=== PATIENT | female | born 1985 | race Caucasian/White ===

== ENCOUNTER 2016-06-03 11:37 | Emergency (ER) | payer OTHER ==
[2016-06-03 12:06] VITALS: BP 152/95
[2016-06-03] MEDS ORDERED: Ketorolac INJ* 60 MG/2 ML VIAL IM ONE (13:07)
--- NOTE | 2016-06-03 13:07 | RAD ---
INDICATION: Right wrist numbness and tingling COMPARISON: None TECHNIQUE: AP, lateral, and oblique views were obtained. FINDINGS: The bony structures, joint spaces, and soft tissues are normal for age. IMPRESSION: NEGATIVE EXAMINATION.
--- NOTE | 2016-06-03 13:08 | RAD ---
HISTORY: Pain, paresthesia COMPARISONS: None VIEWS: 2, Frontal and lateral views of the right elbow FINDINGS: BONE DENSITY: Normal. BONES: There is no displaced fracture. JOINTS: There is no arthropathy. There is no posterior supracondylar fat pad to suggest a joint effusion. ALIGNMENT: There is no dislocation. SOFT TISSUES: Unremarkable. OTHER FINDINGS: None. IMPRESSION: NO ACUTE OSSEOUS INJURY. IF SYMPTOMS PERSIST, RECOMMEND REPEAT IMAGING.
--- NOTE | 2016-06-03 13:09 | RAD ---
Indication: RIGHT upper extremity numbness and paresthesias. Comparison: No relevant prior exams available on the [facility] PACS. Technique: AP, open-mouth odontoid, lateral, and oblique views cervical spine. Report: Straightening relative to normal cervical lordosis without facet subluxation at any level. Negative for fracture. Preserved disc spaces. Unremarkable facet joints. Oblique views are negative for osseous foraminal stenosis. Unremarkable prevertebral soft tissue contours. IMPRESSION: Aside from straightening relative to normal lordosis the examination is normal.
[2016-06-03] MEDS ORDERED: Ketorolac INJ* 30 MG/ML 1 ML VIAL IV PUSH ONE (13:35)
[2016-06-03] MEDS ORDERED: Ketorolac INJ* 60 MG/2 ML VIAL IV PUSH ONE (13:35)
--- NOTE | 2016-06-03 14:21 | UC ---
UC General HPI - HPI Summary HPI Summary: TWO DAYS OF RIGHT SHOULDER PAIN WITH NUMBNESS AND BURNING THAT RADIATES INTO RIGHT WRIST. DURING XRAY PATIENT COMPLAINED OF DIZZINESS, WORSENING RIGHT SHOULDER BURNING, AND DIFFICULTY FOCUSING - History of Current Complaint Chief Complaint: UCUpperExtremity Stated Complaint: HAND NUMB Time Seen by Provider: 06/03/16 12:14 Hx Obtained From: Patient Onset/Duration: Sudden Onset, Lasting Days, Still Present Timing: Constant Onset Severity: Mild Current Severity: Severe Pain Intensity: 0 Pain Location at: RIGHT SHOULDER Pain Radiates to: WRIST HAND Associated Signs & Symptoms: Negative: Fever - Allergy/Home Medications Allergies/Adverse Reactions: Allergies Allergy/AdvReac Type Severity Reaction Status Date / Time Penicillins Allergy Severe Unknown Verified 04/12/14 13:39 Reaction Details Sulfamethoxazole Allergy Severe Hives Verified 04/12/14 13:39 w/Trimethoprim [From Bactrim] PMH/Surg Hx/FS Hx/Imm Hx Previously Healthy: Yes Endocrine History Of: Denies: Diabetes, Thyroid Disease Cardiovascular History Of: Denies: Cardiac Disorders, Hypertension Respiratory History Of: Denies: COPD, Asthma GI/ History Of: Denies: Ulcer - Surgical History Surgical History: Yes Surgery Procedure, Year, and Place: tonsils; appe; cleft palate - Family History Known Family History: Negative: Cardiac Disease, Seizure Disorder - Social History Lives: With Family Alcohol Use: None Substance Use Type: None Smoking Status (MU): Never Smoked Tobacco Have You Smoked in the Last Year: No Review of Systems Constitutional: Negative Skin: Negative Eyes: Negative ENT: Negative Respiratory: Negative Cardiovascular: Negative Gastrointestinal: Negative Motor: Weakness Neurovascular: Negative Musculoskeletal: Myalgia Neurological: Paresthesia Psychological: Negative All Other Systems Reviewed And Are Negative: Yes Physical Exam Triage Information Reviewed: Yes Appearance: Well-Appearing, No Pain Distress, Well-Nourished Vital Signs: Initial Vital Signs Temp 98.2 F 06/03/16 12:02 Pulse 84 06/03/16 12:02 Resp 16 06/03/16 12:02 BP 152/95 06/03/16 12:02 Pulse Ox 100 06/03/16 12:02 Vital Signs Reviewed: Yes Eye Exam: Normal Eyes: Positive: Conjunctiva Clear ENT Exam: Normal ENT: Positive: Normal ENT inspection, Hearing grossly normal, Pharynx normal, TMs normal Dental Exam: Normal Neck exam: Normal Neck: Positive: Supple, Nontender, No Lymphadenopathy. Negative: Nuchal Rigidity, Tenderness @, Enlarged Nodes @ Respiratory Exam: Normal Respiratory: Positive: Chest non-tender, Lungs clear, Normal breath sounds, No respiratory distress, No accessory muscle use Cardiovascular Exam: Normal Cardiovascular: Positive: RRR, No Murmur, Pulses Normal Abdominal Exam: Normal Musculoskeletal: Positive: ROM Intact, No Edema, Strength Limited @ - RIGHT SHOULDER Neurological Exam: Normal Neurological: Positive: Alert, Muscle Tone Normal, Other: - PARESTHESIA RIGHT SHOULDER TO WRIST; DIZZINESS AND DIFFICULTY WITH FOCUSING Psychological Exam: Normal Skin Exam: Normal Course/Dx - Differential Dx - Multi-Symptom Differential Diagnoses: CVA, Metabolic Abnormality, Sepsis Provider Diagnoses: DIZZINESS. RIGHT SHOULDER TO WRIST PARESTHESIAS - Physician Notifications Discussed Patient Care With: DR WHITNEY Time Discussed With Above Provider: 13:35 Instructed by Provider To: MD Will See In ED Discharge - Discharge Plan Condition: Stable Disposition: [facility] Patient Education Materials: Dizziness (ED), Paresthesia (ED) Referrals: Christina Pacheco MD [Primary Care Provider] -
== END 2016-06-03 14:02 | disposition short-term general hospital (02) ==
LOC: UCEAST 11:37
DX: R20.9 Unspecified disturbances of skin sensation (principal); R42 Dizziness and giddiness; Z88.2 Allergy status to sulfonamides; Z88.0 Allergy status to penicillin
CPT/HCPCS: 72050; 93005; 96374; 99213; G0463; J1885

== ENCOUNTER 2016-06-03 14:22 | Emergency (ER) | payer OTHER ==
[2016-06-03] MEDS ORDERED: NS 0.9% 1000 ML* 2,000 ML IV ONE (16:09)
[2016-06-03] MEDS ORDERED: Ketorolac INJ* 30 MG/ML 1 ML VIAL IV ONE (16:09)
--- NOTE | 2016-06-03 16:20 | CONSULT ---
Consult Consult: 06/03/16 neurology consult 31 yo RHF, migraines/chronic daily headaches, fibromyalgia (says diagnosed by rheumatology; not on any immune modulating meds; was trialed on meloxicam (AE limited) and now on naproxyn but does not like to take), presenting with baseline chronic daily headaches, and a day of sensory symptoms that started in her right thumb and have progressed up the right arm diffusely, into the right shoulder, with burning of now both sides of her neck and shoulder blades. She denies visual, bulbar, language issues; she later suggested at various times polyuria (has been on terazosin and another agent), right facial tingling, right leg heaviness; she notes that her headaches was modest yesterday but is worse today. She was seen by Dr Barksdale in 09/19 for headache and associated left hand numbness and tingling, nausea and emesis, photo and phonophobia, dizziness and cognitive fogginess. She had imaging and LP, as below, all negative. She was diagnosed with migraine; there was concern at the time re medication overuse with nsaids and a component of anxiety. She specifically mentions that she did not have an MRI at the time. She suggests seeing Dr Whyte in the office after this, trying nortriptyline, and later celexa (for headaches, not anxiety) , but that she in general is med leery, and uses prn nsaids only when headaches are severe. 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 Plantar responses are flexor; Mello signs absent Coordination: finger to nose is accurate Gait: normal casual gait; narrow base; Romberg negative; normal heel and toe walking Acute workup: Serologies: none acutely Priors: cbc, coags, chem, lft, crp, B12, CSF analysis were all nl/neg in Imagin/[address] x 2 negative 09/19 CTA head and neck neg cervical spine, wrist and elbow xrays all neg today 10/22 CT abd and pelvis neg Impression: 31 year old, FM, migraine/chronic daily headache, presenting with myofascial pains and sensory symptoms in context of headache. She suggests nsaid use only and is not currently on any preventative agents; she was remotely on a TCA; use of an agent that can cross cover her 2 conditions (eg chetan) may be a reasonable outpatient trial. She has no hard or UMN findings and does not appear myelopathic; she had a negative workup 4 years ago for headache with sensory symptoms. From a neuro standpoint, she can be discharged home.
--- NOTE | 2016-06-03 17:11 | RAD ---
HISTORY: Headache, right arm numbness COMPARISONS: September 24, 2012 TECHNIQUE: Multiple contiguous axial CT scans were obtained of the head without intravenous contrast. FINDINGS: HEMORRHAGE/INFARCT: There is no hemorrhage or acute infarct. MASSES/SHIFT: There is no mass or shift. EXTRA-AXIAL SPACES: There are no extra-axial fluid collections. SULCI AND VENTRICLES: The sulci and ventricles are normal in size and position for the patient's stated age. CEREBRUM: There are no focal parenchymal abnormalities. BRAINSTEM: There are no focal parenchymal abnormalities. CEREBELLUM: There are no focal parenchymal abnormalities. VESSELS: The vessels are grossly normal. PARANASAL SINUSES: The paranasal sinuses are clear. ORBITS: The orbits are unremarkable. BONES AND SOFT TISSUE: No bone or soft tissue abnormalities are noted. OTHER: None IMPRESSION: NO ACUTE INTRACRANIAL PATHOLOGY.
--- NOTE | 2016-06-03 17:24 | RAD ---
HISTORY: Headache, right arm numbness COMPARISONS: None TECHNIQUE: Multiple contiguous axial CT scans were obtained of the cervical spine without intravenous contrast, with coronal and sagittal multiplanar reformations. FINDINGS: BRAIN: The visualized brain is unremarkable CENTRAL CANAL: Evaluation of the central canal is limited on CT technique; however, there is no obvious canalicular mass or epidural hemorrhage. ALIGNMENT: There is straightening of the cervical lordosis VERTEBRAL BODIES: The odontoid process is intact. The atlantoaxial intervals are symmetric. The vertebral bodies are normal in attenuation, without fracture. JOINTS: Unremarkable MUSCULATURE: Unremarkable INTERVERTEBRAL DISCS: There is diffuse loss of intervertebral disc height. AXIAL IMAGES: C2-C3: There is no osseous neural foraminal narrowing or central canal stenosis. C3-C4: There is no osseous neural foraminal narrowing or central canal stenosis. C4-C5: There is no osseous neural foraminal narrowing or central canal stenosis. C5-C6: There is no osseous neural foraminal narrowing or central canal stenosis. C6-C7: There is no osseous neural foraminal narrowing or central canal stenosis. C7-T1: There is no osseous neural foraminal narrowing or central canal stenosis. SOFT TISSUES: The visualized soft tissues of the neck are unremarkable. The prevertebral fat stripe is preserved. OTHER: None. IMPRESSION: STRAIGHTENING OF THE CERVICAL LORDOSIS
[2016-06-03 17:36] LABS: Hematocrit 42 % (35-47); Hemoglobin 13.8 g/dl (12.0-16.0); Mean Corpuscular HGB Conc 33 g/dl (31-36); Mean Corpuscular Hemoglobin 29 pg (27-31); Mean Corpuscular Volume 87 fL (80-97); Mean Platelet Volume 8 um3 (7.4-10.4); Red Blood Count 4.76 10^6/ul (4.0-5.4); Red Cell Distribution Width 13 % (10.5-15); White Blood Count 10.3 10^3/ul (3.5-10.8)
[2016-06-03 18:04] LABS: ALT 20 U/L (7-52); AST 18 U/L (13-39); Albumin 4.1 g/dL (3.2-5.2); Alkaline Phosphatase 31 U/L (34-104); Anion Gap 8 mmol/L (2-11); BUN/Creatinine Ratio 13.5 (8-20); Blood Urea Nitrogen 10 mg/dL (6-24); C Reactive Protein 7.66 mg/L (< 5.00); CO2 Carbon Dioxide 22 mmol/L (22-32); Calcium 9.2 mg/dL (8.6-10.3); Chloride 108 mmol/L (101-111); EGFR African American 117.7 (>60); EGFR Non-African American 91.5 (>60); Globulin 2.8 g/dL (2-4); Glucose 84 mg/dL (70-100); Potassium 3.7 mmol/L (3.5-5.0); Sodium 138 mmol/L (133-145); Total Protein 6.9 g/dL (6.4-8.9)
--- NOTE | 2016-06-03 18:42 | ED ---
Wong Joseph Matthew, scribed for Samy Rodriguez MD on 06/03/16 at 1518 . Complex/Multi-Sys Presentation - HPI Summary HPI Summary: A 31 y/o female presents to the ED from [facility] with right hand numbness since yesterday. 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 Associated symptoms currently include right shoulder pain that worsens with movement and is described as a sharp/burning pain through the shoulder, headache, posterior neck pain that when palpated cause pain to radiate into the right shoulder, left shoulder pain, and minimal right leg weakness. She denies left hand numbness, facial numbness, visual changes, and difficulty with speech. The patient's also c/o of not being able to concentrate and that there are "shifts" in her concentration. She states that something just doesn't feels right on the right sided of her body and describes the sensation as tingling. - History Of Current Complaint Chief Complaint: EDGeneral Time Seen by Provider: 06/03/16 14:59 Hx Obtained From: Patient Onset/Duration: Gradual Onset, Lasting Days, Still Present Timing: Constant Severity Currently: Mild Severity Initially: Mild Associated Signs And Symptoms: Positive: Weakness - minimal RT leg, Other - Right hand numbness; right shoulder pain - worse with movement, sharp/burning pain that radiates through the shoulder; headache, posterior neck pain, left shoulder pain - Allergies/Home Medications Allergies/Adverse Reactions: Allergies Allergy/AdvReac Type Severity Reaction Status Date / Time Penicillins Allergy Severe Unknown Verified 04/12/14 13:39 Reaction Details Sulfamethoxazole Allergy Severe Hives Verified 04/12/14 13:39 w/Trimethoprim [From Bactrim] PMH/Surg Hx/FS Hx/Imm Hx Endocrine/Hematology History: Denies: Hx Diabetes, Hx Thyroid Disease Cardiovascular History: Denies: Hx Hypertension Respiratory History: Denies: Hx Asthma, Hx Chronic Obstructive Pulmonary Disease (COPD) GI History: Denies: Hx Ulcer - Cancer History Cancer Type, Location and Year: 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 - Surgical History Surgery Procedure, Year, and Place: tonsils; appe; cleft palate - Immunization History Date of Tetanus Vaccine: UNKNOWN Date of Influenza Vaccine: NONE Infectious Disease History: No Infectious Disease History: Denies: Hx Clostridium Difficile, Hx Hepatitis, Hx Human Immunodeficiency Virus (HIV), Hx of Known/Suspected MRSA, Hx Shingles, Hx Tuberculosis, Hx Known/ Suspected VRE, Hx Known/Suspected VRSA, History Other Infectious Disease, Traveled Outside the [place] in Last 30 Days - Family History Known Family History: Negative: Cardiac Disease, Seizure Disorder - Social History Alcohol Use: None Substance Use Type: Reports: None Smoking Status (MU): Never Smoked Tobacco Have You Smoked in the Last Year: No Review of Systems Constitutional: Negative Eyes: Negative ENT: Negative Cardiovascular: Negative Respiratory: Negative Gastrointestinal: Negative Genitourinary: Negative Positive: Myalgia - RT shoulder, LT shoulder; Posterior neck pain Skin: Negative Positive: Headache, Weakness - minimal right leg, Numbness - right hand thats progressing up the rt arm Psychological: Normal All Other Systems Reviewed And Are Negative: Yes Physical Exam Triage Information Reviewed: Yes Vital Signs On Initial Exam: Initial Vitals Temp Pulse Resp BP Pulse Ox 99.2 F 92 16 135/78 98 06/03/16 14:38 06/03/16 14:38 06/03/16 14:38 06/03/16 14:38 06/03/16 14:38 Vital Signs Reviewed: Yes Appearance: Positive: Well-Appearing, No Pain Distress Skin: Positive: Warm, Dry Head/Face: Positive: Normal Head/Face Inspection Eyes: Positive: EOMI, KURT ENT: Positive: Normal ENT inspection Neck: Positive: Supple, Nontender Respiratory/Lung Sounds: Positive: Clear to Auscultation, Breath Sounds Present Cardiovascular: Positive: RRR Abdomen Description: Positive: Nontender, Soft Bowel Sounds: Positive: Present Musculoskeletal: Positive: Strength/ROM Intact Neurological: Positive: Alert, Oriented to Person Place, Time, Facial Symmetry, Other - She reports decreased sensations in the distal right arm; 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 Negative: Pronator Drift Present Diagnostics - Vital Signs Vital Signs Temp Pulse Resp BP Pulse Ox 06/03/16 14:38 99.2 F 92 16 135/78 98 - Laboratory Lab Results: Lab Results 06/03/16 06/03/16 06/03/16 Range/Units 17:16 17:16 17:16 WBC 10.3 (3.5-10.8) 10^3/ul RBC 4.76 (4.0-5.4) 10^6/ul Hgb 13.8 (12.0-16.0) g/dl Hct 42 (35-47) % MCV 87 (80-97) fL MCH 29 (27-31) pg MCHC 33 (31-36) g/dl RDW 13 (10.5-15) % Plt Count 285 (150-450) 10^3/ul MPV 8 (7.4-10.4) um3 Neut % (Auto) 73.7 (38-83) % Lymph % (Auto) 19.4 L (25-47) % [place] % (Auto) 5.8 (1-9) % Eos % (Auto) 0.7 (0-6) % Baso % (Auto) 0.4 (0-2) % Absolute Neuts (auto) 7.6 (1.5-7.7) 10^3/ul Absolute Lymphs (auto) 2.0 (1.0-4.8) 10^3/ul Absolute Monos (auto) 0.6 (0-0.8) 10^3/ul Absolute Eos (auto) 0.1 (0-0.6) 10^3/ul Absolute Basos (auto) 0 (0-0.2) 10^3/ul Absolute Nucleated RBC 0 10^3/ul Nucleated RBC % 0 INR (Anticoag Therapy) 0.92 (0.89-1.11) APTT 27.9 (26.0-36.3) seconds Sodium 138 (133-145) mmol/L Potassium 3.7 (3.5-5.0) mmol/L Chloride 108 (101-111) mmol/L Carbon Dioxide 22 (22-32) mmol/L Anion Gap 8 (2-11) mmol/L BUN 10 (6-24) mg/dL Creatinine 0.74 (0.51-0.95) mg/dL Est GFR ( Amer) 117.7 (>60) Est GFR (Non-Af Amer) 91.5 (>60) BUN/Creatinine Ratio 13.5 (8-20) Glucose 84 (70-100) mg/dL Calcium 9.2 (8.6-10.3) mg/dL Total Bilirubin 0.40 (0.2-1.0) mg/dL AST 18 (13-39) U/L ALT 20 (7-52) U/L Alkaline Phosphatase 31 L (34-104) U/L C-Reactive Protein 7.66 H (< 5.00) mg/L Total Protein 6.9 (6.4-8.9) g/dL Albumin 4.1 (3.2-5.2) g/dL Globulin 2.8 (2-4) g/dL Albumin/Globulin Ratio 1.5 (1-3) TSH Pending Beta HCG, Quant < 0.60 mIU/mL Result Diagrams: 06/03/16 17:16 06/03/16 17:16 Lab Statement: Any lab studies that have been ordered have been reviewed, and results considered in the medical decision making process. - CT C-Spine CT CT Interpretation: No Acute Changes - IMPRESSION: STRAIGHTENING OF THE CERVICAL LORDOSIS CT Interpretation Completed By: Radiologist Brain CT CT Interpretation: No Acute Changes - IMPRESSION: NO ACUTE INTRACRANIAL PATHOLOGY. CT Interpretation Completed By: Radiologist Complex Multi-Symp Course/Dx Assessment/Plan: NEUROLOGY, DR PRESSLEY, SAW PATIENT IN ED. DISCUSSED RESULTS WITH PATIENT. WILL TREAT WITH NSAIDS AND NORCO PRN. F/U PMD, RETURN IF WORSE. DISCHARGE HOME STABLE. - Diagnoses Provider Diagnoses: Neck pain, Radiculopathy affecting upper extremity, Headache - Physician Notifications Discussed Care Of Patient With: Dr. Soliz (Neurology) at 15:15 -- Notified of paitent's history and will evaluate the patient. Discharge - Discharge Plan Condition: Stable Disposition: HOME Patient Education Materials: Cervical Radiculopathy (ED), General Headache (ED) , Neck Pain (ED) Referrals: Karina Mcgill BRICKMASON SUPERVISOR [Primary Care Provider] - Additional Instructions: FOLLOW UP WITH YOUR DOCTOR. RETURN TO THE EMERGENCY DEPARTMENT FOR ANY WORSENING OF YOUR CONDITION; WEAKNESS , NUMBNESS, DIFFICULTY WITH SPEECH, YOU FEEL ILL OR QUESTIONS OR CONCERNS. The documentation as recorded by the Wong olvera Matthew accurately reflects the service I personally performed and the decisions made by me, Samy Rodriguez MD.
[2016-06-03 18:44] LABS: TSH (Thyroid Stimulating Horm) 1.52 mcIU/mL (0.34-5.60)
[2016-06-03 19:39] VITALS: BP 96/74
== END 2016-06-03 19:39 | disposition home or self-care (01) ==
LOC: ED 14:22
DX: M54.10 Radiculopathy, site unspecified (principal); M54.2 Cervicalgia; R53.1 Weakness; R51 Headache
CPT/HCPCS: 36415; 70450; 72125; 80053; 84443; 84702; 85025; 85610; 85730; 86140; 96374; 99282; J1885

== ENCOUNTER → 2016-07-01 09:52 | Emergency (ER) | payer OTHER ==
--- NOTE | 2016-07-01 11:13 | ED ---
Upper Extremity Pain - HPI Summary HPI Summary: 31F presents with left antecubital fossa pain for the past month. She had an IV placed 5 weeks ago and had pain when the IV was inserted. She states she feels the vein is swollen and sometimes it bulges outward. She has been placed heat on it. She denies any history of blood clots, recent travel, or family history of blood clots. She is a nonsmoker. - History of Current Complaint Chief Complaint: EDGeneral Stated Complaint: SWELLING IN ARM Time Seen by Provider: 07/01/16 10:20 Hx Last Menstrual Period: 05/05/16 - Allergies/Home Medications Allergies/Adverse Reactions: Allergies Allergy/AdvReac Type Severity Reaction Status Date / Time Penicillins Allergy Severe Unknown Verified 04/12/14 13:39 Reaction Details Sulfamethoxazole Allergy Severe Hives Verified 04/12/14 13:39 w/Trimethoprim [From Bactrim] PMH/Surg Hx/FS Hx/Imm Hx Endocrine/Hematology History: Denies: Hx Diabetes, Hx Thyroid Disease Cardiovascular History: Denies: Hx Hypertension Respiratory History: Denies: Hx Asthma, Hx Chronic Obstructive Pulmonary Disease (COPD) GI History: Denies: Hx Ulcer - Cancer History Cancer Type, Location and Year: 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 - Surgical History Surgery Procedure, Year, and Place: tonsils; appe; cleft palate - Immunization History Date of Tetanus Vaccine: UNKNOWN Date of Influenza Vaccine: NONE Infectious Disease History: No Infectious Disease History: Denies: Hx Clostridium Difficile, Hx Hepatitis, Hx Human Immunodeficiency Virus (HIV), Hx of Known/Suspected MRSA, Hx Shingles, Hx Tuberculosis, Hx Known/ Suspected VRE, Hx Known/Suspected VRSA, History Other Infectious Disease, Traveled Outside the [place] in Last 30 Days - Family History Known Family History: Negative: Cardiac Disease, Seizure Disorder - Social History Alcohol Use: None Substance Use Type: Reports: None Smoking Status (MU): Never Smoked Tobacco Have You Smoked in the Last Year: No Review of Systems Negative: Fever Negative: Chest Pain Negative: Shortness Of Breath Positive: Myalgia - pain in left antecubital fossa All Other Systems Reviewed And Are Negative: Yes Physical Exam Triage Information Reviewed: Yes Vital Signs On Initial Exam: Initial Vitals Temp Pulse Resp BP Pulse Ox 97.9 F 98 18 138/98 99 07/01/16 09:56 07/01/16 09:56 07/01/16 09:56 07/01/16 09:56 07/01/16 09:56 Vital Signs Reviewed: Yes Appearance: Positive: Well-Appearing Skin: Positive: Warm, Dry Head/Face: Positive: Normal Head/Face Inspection Eyes: Positive: Normal, Conjunctiva Clear Respiratory/Lung Sounds: Positive: Clear to Auscultation, Breath Sounds Present Cardiovascular: Positive: Normal, RRR Musculoskeletal: Positive: Other - cord like vein felt in left antecubital fossa. good pulses, capillary refill < 2 secs, Diagnostics - Vital Signs Vital Signs Temp Pulse Resp BP Pulse Ox 07/01/16 10:48 97.8 F 98 18 138/98 100 07/01/16 09:56 97.9 F 98 18 138/98 99 - Laboratory Lab Statement: Any lab studies that have been ordered have been reviewed, and results considered in the medical decision making process. - Ultrasound No standard instances Ultrasound Interpretation: Positive (See Comments) - IMPRESSION: Superficial thrombophlebitis of the basilic vein. Ultrasound Interpretation Completed By: Radiologist Course/Dx - Course Course Of Treatment: 31F presents with pain in left antecubital fossa for a month that is intermittent. States started after had IV inserted in arm. states can feel vein. no risk factors for DVT. cord like structure felt in vein. u/s shows phlebitis. will treat with ibuprofen and heat. patient understands and agrees ih plan - Diagnoses Differential Diagnosis/HQI/PQRI: Positive: Sprain, Other - dvt, phlebitis Provider Diagnoses: Superficial thrombophlebitis of left upper extremity Discharge - Discharge Plan Condition: Good Disposition: HOME Patient Education Materials: Superficial Thrombophlebitis (ED) Referrals: Kendra Lewis PA [Primary Care Provider] - Additional Instructions: Use ibuprofen as directed by primary Place heat on area and massage Follow up with primary within 7 days Return to ED if develop any new or worsening symptoms
--- NOTE | 2016-07-01 11:56 | RAD ---
Indication: Antecubital fossa pain. Left arm edema. Duplex Doppler sonography of the deep venous system of left upper extremity was performed. Bilaterally the internal jugular veins appear patent. Subclavian vein bilaterally are patent. The left axillary vein, brachial vein appear patent and compressible. The radial vein and ulnar vein are also patent and compressible. The cephalic vein is not visualized. There is noncompressibility of the basilic vein in the proximal forearm. This is consistent with superficial thrombophlebitis. IMPRESSION: Superficial thrombophlebitis of the basilic vein.
[2016-07-01 12:37] VITALS: BP 136/74
== END | disposition home or self-care (01) ==
LOC: ED 09:52
DX: I82.622 Acute embolism and thrombosis of deep veins of left upper extremity (principal)
CPT/HCPCS: 99281

== ENCOUNTER 2017-03-05 10:06 | Emergency (ER) | payer OTHER, MEDICAID ==
[2017-03-05 11:21] VITALS: BP 153/100
--- NOTE | 2017-03-05 12:20 | RAD ---
Indication: Cough. 2 views of the chest including dual energy PA views demonstrate no mediastinal shift. Heart is of normal size and configuration. Lung savage are clear. There are no prior studies available for review. IMPRESSION: No active cardiopulmonary disease is noted.
--- NOTE | 2017-03-05 13:45 | UC ---
Respiratory Complaint HPI - HPI Summary HPI Summary: Patient presents with an unremarkable past medical history. She presents today with two day onset complaints of headache, fatigue, malaise, fever, chest congestion and cough. She denies the headache occurred in a tunder-clap fashion , nor it is the worse headache of life, and no reported neck pain. She denies double vision, blurred vision, numbness, tingling or weakness of the extremities. She states exposure to other family members with similar illness. She states she had some chest discomfort when she coughs only. Denies any cardiac history, the chest pain is not exertional, and is non-radiating. - History of Current Complaint Chief Complaint: UCGeneralIllness Stated Complaint: FEVER CHILLS COUGH Time Seen by Provider: 03/05/17 11:34 Hx Obtained From: Patient Hx Last Menstrual Period: 02/07/17 Onset/Duration: Gradual Onset, Lasting Days Timing: Intermittent Episodes Severity Initially: Mild Severity Currently: Mild Pain Intensity: 0 Pain Scale Used: 0-10 Numeric Character: Cough: Nonproductive Aggravating Factors: Nothing Alleviating Factors: Nothing Associated Signs And Symptoms: Positive: URI, Nasal Congestion, Sinus Discomfort - Risk Factors Pulmonary Embolism Risk Factors: Negative Cardiac Risk Factors: Negative Pseudomonas Risk Factors: Negative Tuberculosis Risk Factors: Negative - Allergies/Home Medications Allergies/Adverse Reactions: Allergies Allergy/AdvReac Type Severity Reaction Status Date / Time Penicillins Allergy Severe Unknown Verified 03/05/17 11:17 Reaction Details Sulfamethoxazole Allergy Severe Hives Verified 03/05/17 11:17 w/Trimethoprim [From Bactrim] PMH/Surg Hx/FS Hx/Imm Hx Previously Healthy: Yes - Surgical History Surgical History: Yes Surgery Procedure, Year, and Place: tonsils; appe; cleft palate - Family History Known Family History: Negative: Cardiac Disease, Seizure Disorder - Social History Lives: With Family Alcohol Use: None Substance Use Type: None Smoking Status (MU): Never Smoked Tobacco Have You Smoked in the Last Year: No Review of Systems Constitutional: Fever, Fatigue Skin: Negative Eyes: Negative ENT: Sore Throat, Ear Ache, Nasal Discharge Respiratory: Cough Cardiovascular: Negative Gastrointestinal: Negative Genitourinary: Negative Neurovascular: Negative Is Patient Immunocompromised?: Yes All Other Systems Reviewed And Are Negative: Yes Physical Exam Triage Information Reviewed: Yes Appearance: Ill-Appearing Vital Signs: Initial Vital Signs Temp 98 F 03/05/17 11:19 Pulse 98 03/05/17 11:19 Resp 18 03/05/17 11:19 BP 153/100 03/05/17 11:19 Pulse Ox 100 03/05/17 11:19 Vital Signs Reviewed: Yes Eye Exam: Normal ENT: Positive: Pharyngeal erythema, Nasal congestion, Nasal drainage, Sinus tenderness Neck exam: Normal Neck: Positive: 1 Respiratory Exam: Normal Respiratory: Positive: Lungs clear, Normal breath sounds, No respiratory distress, No accessory muscle use Cardiovascular Exam: Normal Cardiovascular: Positive: RRR, No Murmur, Pulses Normal Abdominal Exam: Normal Musculoskeletal Exam: Normal Skin Exam: Normal UC Diagnostic Evaluation - Laboratory O2 Sat by Pulse Oximetry: 100 Respiratory Course/Dx - Course Course Of Treatment: Patient presents with an unremarkable past medical history. She presents with two day onset fatigue, malaise, chest discomfort that occures with coughing and no past medical history of cardiac disease, HEART SCORE 0, a CXR was obtained read by the radiologist and reviewed by myself as negative, which was reviewed with the patient. VSS, patient has a nontoxic appearnce, and clinically presents with influenza and will be treated with Tamiflu 75 mg twice daily for 5 days. If for any reason the patients symtpoms do not improve as anticipated or shoud the worsen she will need to be re-evaluated immediately. She did verbalize understanding of and was in agreement with the discharge plan. - Differential Dx/Diagnosis Differential Diagnosis/HQI/PQRI: Influenza Provider Diagnoses: influenza Discharge - Discharge Plan Condition: Stable Disposition: HOME Prescriptions: Oseltamivir Phosphate [Tamiflu] 75 mg PO BID #10 cap Patient Education Materials: Influenza (ED) Referrals: Dorothea Hayes [Primary Care Provider] -
== END 2017-03-05 12:35 | disposition home or self-care (01) ==
LOC: UCEAST 10:06
DX: J11.1 Influenza due to unidentified influenza virus with other respiratory manifestations (principal)
CPT/HCPCS: 71020; 87651; 99212; G0463

== ENCOUNTER 2017-03-10 01:09 | Emergency (ER) | payer MEDICAID, OTHER ==
[2017-03-10 02:43] LABS: ABS Basophils 0.1 10^3/ul (0-0.2); ABS Eosinophils 0 10^3/ul (0-0.6); ABS Lymphocytes 1.8 10^3/ul (1.0-4.8); ABS Monocytes 0.6 10^3/ul (0-0.8); ABS Neutrophils 7.2 10^3/ul (1.5-7.7); ABS Nucleated RBC 0.01 10^3/ul; Eosinophil % 0.5 % (0-6); Hematocrit 41 % (35-47); Hemoglobin 14.2 g/dl (12.0-16.0); Lymphocyte % 18.3 % (25-47); Mean Corpuscular HGB Conc 35 g/dl (31-36); Mean Corpuscular Hemoglobin 29 pg (27-31); Mean Corpuscular Volume 84 fL (80-97); Mean Platelet Volume 8 um3 (7.4-10.4); Nucleated Red Blood Cells % 0.1; Platelet Count 290 10^3/ul (150-450); Red Blood Count 4.82 10^6/ul (4.0-5.4); Red Cell Distribution Width 12 % (10.5-15); White Blood Count 9.8 10^3/ul (3.5-10.8)
[2017-03-10 02:56] LABS: EGFR Non-African American 75.5 (>60)
[2017-03-10] MEDS ORDERED: Iohexol 350* (CONTRAST) 500 ML MDV IV ONE (04:34)
[2017-03-10 06:56] VITALS: BP 99/69
--- NOTE | 2017-03-10 09:00 | RAD ---
INDICATION: LEFT side chest pain possibly from coughing. Radiation to the LEFT arm. COMPARISON: CT chest of the same date. March 05, 2017 chest radiograph. TECHNIQUE: Dual energy PA and routine lateral views of the chest were obtained. REPORT: Clear lungs and pleural spaces. Negative for pneumothorax. The heart, pulmonary vasculature, and mediastinal contours are unremarkable. Unremarkable osseous structures and soft tissue contours. IMPRESSION: No evidence for acute intrathoracic disease.
--- NOTE | 2017-03-10 09:10 | RAD ---
INDICATION: Pleuritic chest pain. History of thrombus. COMPARISON: Chest radiograph of the same date. TECHNIQUE: Multidetector CT images were obtained from the lung apices to the upper abdomen with 66 mL Omnipaque 350 IV contrast. Pulmonary angiogram protocol. Multiplanar reformation including with maximum intensity projection. REPORT: Clear lungs and pleural spaces. Negative for thoracic lymphadenopathy, cardiomegaly, pericardial effusion. Normal diameter thoracic aorta. Negative for aortic dissection. Motion artifact mildly degrades the CT pulmonary angiogram. No filling defects are identified from the main to the subsegmental pulmonary arteries to indicate presence of a pulmonary embolism. Negative for thoracic fractures or suspicious focal osseous lesions. IMPRESSION: No evidence for pulmonary embolism. Negative exam.
--- NOTE | 2017-03-13 11:07 | ED ---
Amelie Joseph Gabriel scribed for Joe Genao MD on 03/10/17 at 0113 . HPI Chest Pain - HPI Summary HPI Summary: This patient is a 32 year old F BIBA to [facility] with a chief complaint of CP since 2129 that was gradually getting worse. The patient rates the pain 5/10 in severity and radiating into her back, jaw, and arm. Symptoms alleviated by ASA. Patient reports coughing, diaphoresis, chills, fever, vomiting, and palpitations. She has recently been having flu like symptoms and was evaluated at where they noticed her blood pressure was elevated. The doctor contributed this to her taking sudafed and ASA. She has a history of a superficial clot in her arm and is on BC. Additionally she has a family history of CAD. - History of Current Complaint Hx Obtained From: Patient Hx Last Menstrual Period: 02/07/17 Onset/Duration: Started Hours Ago, Still Present Time of Onset: 21:30 Timing: Constant Initial Severity: Moderate Current Severity: Mild Pain Intensity: 5 Pain Scale Used: 0-10 Numeric Chest Pain Location: Diffuse Chest Pain Radiates: Yes Chest Pain Radiates To:: Back, Arm - left, Jaw Character: Crushing Associated Signs and Symptoms: Positive: Other: - reports coughing, diaphoresis , chills, fever, vomiting, and palpitations. - Allergy/Home Medications Allergies/Adverse Reactions: Allergies Allergy/AdvReac Type Severity Reaction Status Date / Time Penicillins Allergy Severe Unknown Verified 03/05/17 11:17 Reaction Details Sulfamethoxazole Allergy Severe Hives Verified 03/05/17 11:17 w/Trimethoprim [From Bactrim] PMH/Surg Hx/FS Hx/Imm Hx Endocrine/Hematology History: Denies: Hx Diabetes, Hx Thyroid Disease Cardiovascular History: Denies: Hx Hypertension Respiratory History: Denies: Hx Asthma, Hx Chronic Obstructive Pulmonary Disease (COPD) GI History: Denies: Hx Ulcer - Cancer History Cancer Type, Location and Year: 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 - Surgical History Surgery Procedure, Year, and Place: tonsils; appe; cleft palate - Immunization History Date of Tetanus Vaccine: UNKNOWN Date of Influenza Vaccine: NONE Infectious Disease History: Denies: Hx Clostridium Difficile, Hx Hepatitis, Hx Human Immunodeficiency Virus (HIV), Hx of Known/Suspected MRSA, Hx Shingles, Hx Tuberculosis, Hx Known/ Suspected VRE, Hx Known/Suspected VRSA, History Other Infectious Disease - Family History Known Family History: Positive: Cardiac Disease - father Negative: Seizure Disorder - Social History Lives: With Family Alcohol Use: None Hx Substance Use: No Substance Use Type: Reports: None Hx Tobacco Use: No Smoking Status (MU): Never Smoked Tobacco Have You Smoked in the Last Year: No Review of Systems Positive: Fever, Chills, Skin Diaphoresis Negative: Erythema Negative: Sore Throat Positive: Palpitations, Chest Pain Positive: Cough. Negative: Shortness Of Breath Positive: Vomiting. Negative: Abdominal Pain, Nausea Negative: dysuria, hematuria Negative: Myalgia, Edema Negative: Rash Neurological: Negative - dizziness All Other Systems Reviewed And Are Negative: Yes Physical Exam - Summary Physical Exam Summary: Constitutional: Well-developed, Well-nourished, Alert. (-) Distressed Skin: Warm, Dry HENT: Normocephalic; Atraumatic Eyes: Conjunctiva normal Neck: Musculoskeletal ROM normal neck. (-) JVD, (-) Stridor, (-) Tracheal deviation Cardio: Rhythm regular, rate normal, Heart sounds normal; Intact distal pulses; The pedal pulses are 2+ and symmetric. Radial pulses are 2+ and symmetric. (-) Murmur Pulmonary/Chest wall: Effort normal. (-) Respiratory distress, (-) Wheezes, (-) Rales Abd: Soft, (-) Tenderness, (-) Distension, (-) Guarding, (-) Rebound Musculoskeletal: (-) Edema, No costochondral tenderness Lymph: (-) Cervical adenopathy Neuro: Alert, Oriented x3 Psych: Mood and affect Normal Triage Information Reviewed: Yes Vital Signs Reviewed: Yes Diagnostics - Laboratory Result Diagrams: 03/10/17 02:31 18 02:31 Lab Statement: Any lab studies that have been ordered have been reviewed, and results considered in the medical decision making process. - CT CTA Chest CT Interpretation Completed By: Radiologist - negative for pulmonary embolus, negative for thoracic aortic aneurysm or dissection, lungs are clear of acute disease ED physician has reviewed this radiology report. - EKG 01:05 Cardiac Rate: NL EKG Rhythm: Sinus Rhythm - at 91BPM EKG Interpretation: no STEMI Chest Pain Course/Dx - Course Assessment/Plan: This patient is a 32 year old F BIBA to [facility] with a chief complaint of CP since 2129 that was gradually getting worse. An EKG reveals NSR. CTA chest reveals, per radiologist, negative for pulmonary embolus, negative for thoracic aortic aneurysm or dissection, lungs are clear of acute disease. CXR reveals, no acute disease. Test results with no significant abnormalities. There are no signs of an MO or PE so the patient will be discharged home with follow up from her PCP in 4 days. The patient is agreeable with this plan. - Diagnoses Provider Diagnoses: Chest pain, unspecified Discharge - Discharge Plan Condition: Stable Disposition: HOME Patient Education Materials: Chest Pain (ED) Referrals: Dorothea Hayes [Primary Care Provider] - 4 Days Additional Instructions: RETURN TO THE EMERGENCY DEPARTMENT FOR CHANGING OR WORSENING SYMPTOMS. The documentation as recorded by the Amelie olvera Gabriel accurately reflects the service I personally performed and the decisions made by , Joe Genao MD.
== END 2017-03-10 06:58 | disposition home or self-care (01) ==
LOC: ED 01:09
DX: R07.9 Chest pain, unspecified (principal); R05 Cough; R50.9 Fever, unspecified; R11.10 Vomiting, unspecified
CPT/HCPCS: 36415; 71020; 71275; 80053; 84484; 85025; 93005; 99284; Q9967

== ENCOUNTER → 2017-09-11 00:35 | Emergency (ER) | payer OTHER ==
--- OUTSIDE RECORDS SUMMARY | 2017-09-11 01:03 | XMS REPORT ---
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 Primary Care Physician Unavailable Payers Type Date Identification Numbers Payment Provider Subscriber Commercial Policy Number: [id number] Leeroy Schaeffer Group Number: [id number] [address] PayID: [id number] [place] [address] Problems Date Description Provider Status Onset: 07/29/2017 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, NEC Family History Date Family Member(s) Problem(s) Comments General Diabetes General Heart Disease General Hypertension General Stroke Social History Type Date Description Comments 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 Use Denies alcohol use Smoking Patient has never smoked Exercise Type/Frequency Exercises regularly Allergies, Adverse Reactions, Alerts Date Description Reaction Status Severity Comments 02/02/2013 Bactrim Hives active 02/02/2013 Penicillin active Medications Medication Date Status Form Strength Qnty SIG Indications Ordering Provider Multivitamins 02/02/ Active Capsules 30caps 1 capsule Jenny Hylton 2012 daily Kirt Whyte Tylenol / Active Tablets 325mg 2 tabs po Unknown 0000 prn Microgestin Fe / Active Tab 1 tab po Unknown 0000 daily Ibuprofen / Active Tablets 800mg 90tabs 1 cap po Unknown 0000 prn Nortriptyline HCL 02/02/ Hx Capsules 10mg 60caps 1-2 caps Jenny Hylton 2012 - by mouth Isabell, 07/12/ every M.D. 2018 night as directed Escitalopram / Hx Tablets 10mg 30tabs 1 po qd Unknown Oxalate 0000 - 2017 Cyclobenzaprine / Hx Tablets 10mg 1 tab po Unknown HCL 0000 - hs prn 2017 Medications Administered in Office Medication Date Status Form Strength Qnty SIG Indications Ordering Provider Celestone 3 mg Administered Injection Med and 3mg Anali Mulligan MD Vital Signs Date Vital Result Comment 09/09/2017 Height 61.25 inches 5'1.25" Heart Rate 86 /min Respiratory Rate 16 /min Body Temperature 97.8 F Pain Level 3 07/29/2017 Height 61.25 inches 5'1.25" Weight 139.00 lb Heart Rate 65 /min BP Systolic 138 mmHg BP Diastolic 85 mmHg Body Temperature 98.0 F BMI (Body Mass Index) 26.0 kg/m2 02/02/2013 Heart Rate 60 /min BP Systolic Sitting 130 mmHg BP Diastolic Sitting 64 mmHg Respiratory Rate 16 /min Results Description No Information Procedures Date CPT Code Description Status 07/29/2017 98859 Inject/Drain Joint/Bursa Intermediate W/O US Completed Encounters Type Date Location Provider CPT E/M Dx Office Visit 07/29/2017 [facility], [address] M24.831 2:00p Mathieu HOGUE Office Visit 06/03/2016 [facility] [address] G43.009 11:07a MD Martínez R20.2 Office Visit 02/02/2013 9:00a [facility] Jenny Whyte, [address] 346.90 [facility] 524.60 Office Visit 09/24/2012 1:23p [facility] Nancy Barksdale M.D. 29624 [phone] [facility] [phone] Plan of Care Future Appointment(s):10/21/2017 2:15 pm - Med Mulligan MD at [facility]
[2017-09-11 01:47] LABS: ABS Basophils 0.1 10^3/ul (0-0.2); ABS Eosinophils 0 10^3/ul (0-0.6); ABS Monocytes 0.7 10^3/ul (0-0.8); ABS Neutrophils 10.7 10^3/ul (1.5-7.7); ABS Nucleated RBC 0 10^3/ul; Eosinophil % 0.2 % (0-6); Hematocrit 41 % (35-47); Hemoglobin 14.1 g/dl (12.0-16.0); Lymphocyte % 14.6 % (25-47); Mean Corpuscular HGB Conc 35 g/dl (31-36); Mean Corpuscular Hemoglobin 30 pg (27-31); Mean Corpuscular Volume 86 fL (80-97); Mean Platelet Volume 8.2 um3 (7.4-10.4); Nucleated Red Blood Cells % 0; Platelet Count 321 10^3/ul (150-450); Red Cell Distribution Width 13 % (10.5-15); White Blood Count 13.5 10^3/ul (3.5-10.8)
[2017-09-11 02:04] LABS: EGFR Non-African American 95.4 (>60)
[2017-09-11 04:53] VITALS: BP 0/0
== END | disposition left against medical advice (07) ==
LOC: ED 00:35
DX: R11.2 Nausea with vomiting, unspecified (principal); R19.7 Diarrhea, unspecified; Z53.21 Procedure and treatment not carried out due to patient leaving prior to being seen by health care provider
CPT/HCPCS: 36415; 80053; 82550; 83605; 84702; 85025; 99282

== ENCOUNTER 2017-09-11 15:42 | Emergency (ER) | payer OTHER ==
--- OUTSIDE RECORDS SUMMARY | 2017-09-11 15:56 | XMS REPORT ---
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 II. Results obtained with other manufacturers' assay methods may not be used interchangeably. The magnitude of the reported IgA level cannot be correlated to an endpoint titer. 18 INTERPRETATION OF RESULTS: < 20 UNITS NEGATIVE 20-30 UNITS WEAK POSITIVE > 30 UNITS MODERATE TO STRONG POSITIVE The following result was obtained with the [employer]ANT[employer] Lite Gliadin IgG II. Results obtained with other manufacturers' assay methods may not be used interchangeably. The magnitude of the reported IgG levels cannot be correlated to an endpoint titer. 19 INTERPRETATION OF RESULTS: < 20 UNITS NEGATIVE 20-30 UNITS WEAK POSITIVE > 30 UNITS MODERATE TO STRONG POSITIVE The following result was obtained with the [employer] QU[employer] Lite h-tTG IgA KRANTHI. Results obtained with other manufacturers' assay methods may not be used interchangeably. The magnitude of the reported IgA level cannot be correlated to an endpoint titer. Performed at [address] [place] [address] 20 INTERPRETATION OF RESULTS: < 20 UNITS NEGATIVE 20-30 UNITS WEAK POSITIVE > 30 UNITS MODERATE TO STRONG POSITIVE The following result was obtained with the [employer] Lite h-tTG IgG KRANTHI. Results obtained with other manufacturers' assay methods may not be used interchangeably. The magnitude of the reported IgG levels cannot be correlated to an endpoint titer. Performed at [address] [place] [address] Unless otherwise specified, testing performed by [facility] [address] [address] 21 A Negative serologic test for Lyme Disease indicates no serologic evidence of infection with B burgdorferi at the time this specimen was collected. A repeat specimen should be collected in 2 to 4 weeks if clinically indicated. Unless otherwise specified, testing performed by [facility] [address] [address] 22 Unless otherwise specified, testing performed by [employer] [address] 23 4.6 Specimen Slightly Hemolyzed 24 Concerning GFR Guidelines for Americans: Normal function or mild renal disease, if clinically at risk: >/=60 mL/min Moderately decreased: 30-59 Severely decreased: 15-29 Renal failure: <15 25 Concerning GFR Guidelines: Normal function or mild renal disease, if clinically at risk: >/=60 mL/min Moderately decreased: 30-59 Severely decreased: 15-29 Renal failure: <15 Glomerular Filtration Rate (GFR) is estimated based on the MDRD equation, which assumes a steady state for creatinine as recommended by the National Kidney Disease Education Program in conjunction with the National Institutes of Health and the National Kidney Foundation. Clinical conditions in which it may be necessary to measure GFR by using clearance methods include extremes of age and body size, severe malnutrition or obesity, diseases of skeletal muscle, paraplegia or quadriplegia, vegetarian diet, rapidly changing kidney function, and calculation of the dose of potentially toxic drugs that are excreted by the kidneys. 26 Microbiology results S[facility] FINAL RESULT No growth 27 This sample is drawn by:CT 28 Concerning GFR Guidelines for Americans: Normal function or mild renal disease, if clinically at risk: >/=60 mL/min Moderately decreased: 30-59 Severely decreased: 15-29 Renal failure: <15 29 Concerning GFR Guidelines: Normal function or mild renal disease, if clinically at risk: >/=60 mL/min Moderately decreased: 30-59 Severely decreased: 15-29 Renal failure: <15 Glomerular Filtration Rate (GFR) is estimated based on the MDRD equation, which assumes a steady state for creatinine as recommended by the National Kidney Disease Education Program in conjunction with the National Institutes of Health and the National Kidney Foundation. Clinical conditions in which it may be necessary to measure GFR by using clearance methods include extremes of age and body size, severe malnutrition or obesity, diseases of skeletal muscle, paraplegia or quadriplegia, vegetarian diet, rapidly changing kidney function, and calculation of the dose of potentially toxic drugs that are excreted by the kidneys. Procedures Date CPT Code Description Status 07/03/2017 64528 Physical Therapy Eval Completed 07/03/2017 57220 Nerve Conduction 7-8 Studies Completed 07/03/2017 73968 Needle Electromyography Complete, Five Or More Muscles Completed Studied Encounters Type Date Location Provider CPT E/M Dx Office Visit 06/26/2017 11:00a Dorothea Melgar, RN [facility] [address] M54.2 M25.511 M25.512 N76.0 R23.9 M25.531 R20.2 Z68.28 Office Visit 03/13/2017 1:40p Dorothea Melgar RN [facility] [address] J01.00 R07.9 Z68.29 Office Visit 07/18/2016 11:40[place] [address] M25.511 M54.2 R03.0 J02.9 Office Visit 06/27/2016 11:00[place] [address] M25.511 M54.2 R03.0 Office Visit 06/06/2016 11:20[place] [address] M25.511 M54.2 Office Visit 04/05/2016 2:20p [place] [address] J01.90 I10 Z77.120 Z13.9 Z32.02 Office Visit 06/23/2015 12:40p Dorothea Melgar RN [facility] [address] J01.90 Office Visit 05/19/2015 10:00a Dorothea Melgar RN [facility] [address] R35.0 K64.8 N76.0 J30.9 F33.0 Office Visit 04/13/2015 3:30p Dorothea Melgar RN [facility] [address] J01.00 Office Visit 11/17/2014 10:20[place] [address] 279.49 780.79 789.9 788.41 311 300.02 Office Visit 10/19/2014 10:00[place] [address] 780.79 789.9 788.41 Office Visit 10/03/2014 1:40p [place] [address] 789.9 780.79 788.41 346.10 311 300.02 524.60 Office Visit 09/01/2014 2:20p [place] [address] 789.9 346.10 311 300.02 524.60 Office Visit 07/01/2013 1:40p Dorothea Melgar RN [facility] [address] 789.9 Office Visit 05/18/2013 8:20a [place] [address] 346.10 311 Office Visit 04/09/2013 9:40a Dorothea Melgar RN [facility] [address] 346.10 780.79 300.02 311 Office Visit 01/29/2013 10:00a Dorothea Melgar RN [facility] [address] 626.6 524.64 300.02 Office Visit 12/25/2012 10:40a Dorothea Melgar RN [facility] [address] 524.64 784.0 300.02 Office Visit 11/26/2012 9:00[place] [address] 784.0 327.02 300.02 311 Office Visit 10/15/2012 10:00[place] [address] 784.0 300.02 327.02 Office Visit 09/29/2012 9:00[place] [address] 784.0 327.02 300.02 311 Plan of Care Future Appointment(s):09/17/2017 10:20 am - Kain Delgado PA at [id number] 10:20 am - Dorothea Hayes RN [facility] [employer] at [facility]4309/11/2017 - Kain Delgado PAR53.83 Other fatigueNew Medication:Doxycycline Hyclate 100 mgFluconazole 100 mgNew Labs:[employer] SC Blood-RLComments:WBC elevated at the ED last night. recent h/o dental filling with issues since it was done. now with f/c, n/v, diarrhea, neck pain, tooth pain, and severe fatigue. Will test for common infectious dz. Also will check heavy metals. ??worry about viral meningitis. ? mono or tick dz. ??severe sinus infection from the dental procedure.Follow up:f /u next weekR19.7 Diarrhea, unspecifiedNew Labs:He[employer] SC Blood-RLComments: see [id number] Nausea with vomiting, unspecifiedNew Labs:He[employer] SC Blood- RLComments:see ffchtY65.2 CervicalgiaComments:rare and unlikely chance of a viral meningitis. warned pt that if BURRELL and neck pain worsen, to the ED she should go.
[2017-09-11] MEDS ORDERED: NS 0.9% 1000 ML* 2,000 ML IV ONE (16:46)
[2017-09-11] MEDS ORDERED: Ondansetron INJ* 2 MG/ML VIAL IV ONE (16:57)
[2017-09-11] MEDS ORDERED: Ketorolac INJ* 30 MG/ML 1 ML VIAL IV PUSH ONE (17:00)
--- NOTE | 2017-09-11 17:00 | ED ---
GI/ HPI - HPI Summary HPI Summary: 32 year old female presents with nausea vomiting diarrhea for the past day. States she was on boat earlier in the day yesterday and then after she got off she felt developed a headache. States she went home and started vomiting and then had the diarrhea. No blood in her stool. No one else is sick. Not eating anything different. States yesterday unable to keep anything down but today able to drink some liquids. She denies any fevers. She states that she is also been having neck pain and back pain. No urinary symptoms. She's been having epigastric pain. She's also been having right lower quadrant pain for the past couple days that she believes is a cyst. She has had her appendix removed. She denies any chest or shortness breath. No cough. No sore throat. No sinus congestion. Her headache is mostly on the right side. She denies any photophobia. She denies any neck stiffness. She checked into the ED last night and labs were drawn but she was not seen. She follows up with primary today and was concerned that she could have infection as wbc elevated. She was told she should come to the evening gets worse. She states her headache has been getting worse. She has no medical conditions. No recent tick exposures. - History of Current Complaint Chief Complaint: EDGeneral Time Seen by Provider: 09/11/17 16:46 Stated Complaint: HEADACHE/BACK PAIN Hx Last Menstrual Period: 02/07/17 Pain Intensity: 5 - Allergy/Home Medications Allergies/Adverse Reactions: Allergies Allergy/AdvReac Type Severity Reaction Status Date / Time Penicillins Allergy Unknown Verified 09/11/17 15:48 Reaction Details sulfamethoxazole Allergy Hives Verified 09/11/17 15:48 [From Bactrim] trimethoprim [From Bactrim] Allergy Hives Verified 09/11/17 15:48 Home Medications: Home Medications Acetaminophen TAB* [Tylenol TAB*] 650 mg PO Q6H PRN 09/11/17 [History Confirmed 09/11/17] Ibuprofen TAB* [Motrin TAB* 800 MG] 800 mg PO Q6H PRN 09/11/17 [History Confirmed 09/11/17] Multivitamins/Minerals TAB* [Theragran/minerals TAB*] 1 tab PO DAILY 09/11/17 [ History Confirmed 09/11/17] Norethindrone-E.estradiol-Iron [Microgestin Fe 1-20 mg-Mcg] 1 tab PO DAILY 09/11 [History Confirmed 09/11/17] PMH/Surg Hx/FS Hx/Imm Hx Endocrine/Hematology History: Denies: Hx Diabetes, Hx Thyroid Disease Cardiovascular History: Denies: Hx Hypertension, Hx Pacemaker/ICD Respiratory History: Denies: Hx Asthma, Hx Chronic Obstructive Pulmonary Disease (COPD) GI History: Denies: Hx Ulcer History: Denies: Hx Renal Disease Sensory History: Denies: Hx Hearing Aid Psychiatric History: Denies: Hx Panic Disorder - Cancer History Cancer Type, Location and Year: 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 APPENDECTOMY. cleft palate - Immunization History Date of Tetanus Vaccine: UNKNOWN Date of Influenza Vaccine: NONE Infectious Disease History: No Infectious Disease History: Denies: Hx Clostridium Difficile, Hx Hepatitis, Hx Human Immunodeficiency Virus (HIV), Hx of Known/Suspected MRSA, Hx Shingles, Hx Tuberculosis, Hx Known/ Suspected VRE, Hx Known/Suspected VRSA, History Other Infectious Disease, Traveled Outside the [place] in Last 30 Days - Family History Known Family History: Positive: Cardiac Disease - father Negative: Seizure Disorder - Social History Alcohol Use: None Hx Substance Use: No Substance Use Type: Reports: None Hx Tobacco Use: No Smoking Status (MU): Never Smoked Tobacco Have You Smoked in the Last Year: No Review of Systems Negative: Fever Negative: Photophobia Negative: Dental Pain, Sore Throat, Nasal Discharge Negative: Chest Pain Negative: Shortness Of Breath, Cough Positive: Abdominal Pain, Vomiting, Diarrhea, Nausea Positive: Myalgia - neck and back pain Positive: Headache All Other Systems Reviewed And Are Negative: Yes Physical Exam Triage Information Reviewed: Yes Vital Signs On Initial Exam: Initial Vitals Temp Pulse Resp BP Pulse Ox 98.4 F 84 16 158/82 100 09/11/17 15:44 09/11/17 15:44 09/11/17 15:44 09/11/17 15:44 09/11/17 15:44 Vital Signs Reviewed: Yes Appearance: Positive: Well-Appearing Skin: Positive: Warm, Dry Head/Face: Positive: Normal Head/Face Inspection Eyes: Positive: Normal, EOMI, KURT, Conjunctiva Clear ENT: Positive: Normal ENT inspection, Pharynx normal, TMs normal Dental: Negative: Percussion Tenderness @ Neck: Positive: Supple, Nontender, No Lymphadenopathy, Other: - full ROM neck, tenderness side of neck. Negative: Nuchal Rigidity Respiratory/Lung Sounds: Positive: Clear to Auscultation, Breath Sounds Present Cardiovascular: Positive: Normal, RRR Abdomen Description: Positive: Soft, Other: - tenderness RLQ and epigastric region Bowel Sounds: Positive: Present Musculoskeletal: Positive: Normal Neurological: Positive: Sensory/Motor Intact, Alert, Oriented to Person Place, Time, CN Intact II-III Psychiatric: Positive: Normal Diagnostics - Vital Signs Vital Signs Temp Pulse Resp BP Pulse Ox 09/11/17 15:44 98.4 F 84 16 158/82 100 - Laboratory Result Diagrams: 09/11/17 17:01 09/11/17 17:01 Lab Statement: Any lab studies that have been ordered have been reviewed, and results considered in the medical decision making process. Re-Evaluation - Re-Evaluation First Eval Re-Evaluation Time: 18:40 Change: Unchanged Comment: headache and back pain still there Second Eval Re-Evaluation Time: 20:08 Change: Improved Comment: headache is better GIGU Course/Dx - Course Course Of Treatment: 32 year old female presents with nausea vomiting diarrhea for the past day. States she was on boat earlier in the day yesterday and then after she got off she felt developed a headache. States she went home and started vomiting and then had the diarrhea. No blood in her stool. No one else is sick. Not eating anything different. States yesterday unable to keep anything down but today able to drink some liquids. She denies any fevers. She states that she is also been having neck pain and back pain. No urinary symptoms. She's been having epigastric pain. She's also been having right lower quadrant pain for the past couple days that she believes is a cyst. She has had her appendix removed. She denies any chest or shortness breath. No cough. No sore throat. No sinus congestion. Her headache is mostly on the right side. She denies any photophobia. She denies any neck stiffness. She checked into the ED last night and labs were drawn but she was not seen. She follows up with primary today and was concerned that she could have infection as wbc elevated. She was told she should come to the evening gets worse. She states her headache has been getting worse. She has no medical conditions. No recent tick exposures. on exam normal neuro exam. mild tenderness epigastric and RLQ. lungs CTA. labs wbc normal. electrolytes normal. likely a viral gastroenteritis. patient then states headache has been there for two weeks. will try some benadryl reglan and morphine. headache has resolved. will dischrge with zofran. patient understand and agrees with plan. - Diagnoses Differential Diagnoses - Female: Gastroenteritis (Viral), Gastroenteritis ( Bacterial), Urinary Tract Infection Provider Diagnoses: Nausea vomiting and diarrhea Discharge - Sign-Out/Discharge Documenting (check all that apply): Discharge/Admit/Transfer - Discharge Plan Condition: Good Disposition: HOME Prescriptions: Ondansetron ODT TAB* [Zofran 4 MG Odt TAB*] 4 mg PO Q6H PRN #16 tab.odt PRN Reason: Nausea Patient Education Materials: Acute Nausea and Vomiting (ED) Referrals: Dorothea Hayes [Primary Care Provider] - Additional Instructions: Can take Zofran every 6 hours as needed for nausea Drink small amounts of fluid as tolerated When able to eat follow BRAT diet: Bananas, rice, applesauce, toast Take ibuprofen or Tylenol for pain as needed every 6 hours Follow up with primary within 5 days Return to ED if develop fever that does not respond to Tylenol or ibuprofen, severe abdominal pain, or any new or worsening symptoms - Billing Disposition and Condition Condition: GOOD Disposition: Home
[2017-09-11 17:12] LABS: ABS Basophils 0 10^3/ul (0-0.2); ABS Eosinophils 0.1 10^3/ul (0-0.6); ABS Monocytes 0.8 10^3/ul (0-0.8); ABS Neutrophils 7.1 10^3/ul (1.5-7.7); ABS Nucleated RBC 0 10^3/ul; Eosinophil % 0.7 % (0-6); Hematocrit 41 % (35-47); Hemoglobin 14.3 g/dl (12.0-16.0); Lymphocyte % 20.2 % (25-47); Mean Corpuscular HGB Conc 35 g/dl (31-36); Mean Corpuscular Hemoglobin 30 pg (27-31); Mean Corpuscular Volume 87 fL (80-97); Mean Platelet Volume 8.1 um3 (7.4-10.4); Nucleated Red Blood Cells % 0; Platelet Count 311 10^3/ul (150-450); Red Blood Count 4.71 10^6/ul (4.00-5.40); Red Cell Distribution Width 13 % (10.5-15); White Blood Count 9.9 10^3/ul (3.5-10.8)
[2017-09-11 17:33] LABS: EGFR Non-African American 84.3 (>60)
[2017-09-11 17:50] LABS: Urine Appearance Clear; Urine Blood 1+ (Negative); Urine Color Colorless; Urine Ketones Negative (Negative); Urine Protein Negative (Negative); Urine Specific Gravity 1.001 (1.010-1.030); Urine Urobilinogen Negative (Negative)
[2017-09-11] MEDS ORDERED: diPHENhydraMINE IV* 50 MG/ML 1 ml VIAL (BENADRYL) IV ONE (18:37)
[2017-09-11] MEDS ORDERED: Morphine VIAL* 4 MG/ML VIAL (1 ml vial) IV ONE (18:38)
[2017-09-11] MEDS ORDERED: Metoclopramide IV* 5 MG/ML 2 ML VIAL IV SLOW PU ONE (18:38)
[2017-09-11 20:15] VITALS: BP 124/62
== END 2017-09-11 20:14 | disposition home or self-care (01) ==
LOC: ED 15:42
DX: R11.2 Nausea with vomiting, unspecified (principal); R19.7 Diarrhea, unspecified; Z88.1 Allergy status to other antibiotic agents; Z88.2 Allergy status to sulfonamides; Z88.3 Allergy status to other anti-infective agents
CPT/HCPCS: 36415; 80053; 81003; 81015; 82550; 83735; 85025; 86140; 86618; 96361; 96374; 96375; 99282; J1200; J1885; J2270; J2405; J2765

== ENCOUNTER 2018-03-14 17:57 | Emergency (ER) | payer OTHER ==
[2018-03-14] MEDS ORDERED: NS 0.9% 1000 ML* 2,000 ML IV ONE (18:29)
--- NOTE | 2018-03-14 18:38 | ED ---
HPI Cardiac - HPI Summary HPI Summary: Patient is a 33 y/o F presenting to ED with complaints of tachycardia, elevated BP, BURRELL, hot flashes. Provider in room at 1825, pzcuac-[id number] Marisol is present. She was seen by provider CHARLEEN Delgado yesterday, EKG was done and patient was told that her "heart is fast". She states that he treated her as sinus infection , patient notes Hx of sinus infection. Three days ago tachycardia onset, which she describes as a pounding sensation. Patient woke up with this Sx. She notes that a few days before tachycardia onset, she had several episodes of hot flashes and is continuing to do so. After tachycardia onset, she measured BP at home three days ago to be 138/83. She reports several other BP measurements over the course of the past few days with the highest being 163/96. Patient also reports pulse was 134 at 1630 today. When asked if she feels pain, she states "I just feel funny. I feel like I'm drunk." When patient stood up, SVT was noted on monitor briefly. She reports frontal BURRELL which she describes as a pressure. She notes that 03/10/2017, she was here for chest pain and right arm numbness. First day of last period was 03/11/18, states that it was irregular, noting that she bled for one day minimally. Patient also reports some right calf pain since yesterday. PMHx of kidney stones. She claims Hx of superficial thrombophlebitis. Patient states that she has never been on blood thinners. No Hx of HTN is reported. Patient denies smoking cigarettes, alcohol consumption. She notes that she drinks fluids frequently. FMHx of cardiac disease, paternal grandmother, father had AR. PSHx appendectomy, tonsillectomy, cleft palate repair. Scheduled for surgery in two days for left wrist, states that she injured it a couple of years ago. BP 153/105, o2 98. Multiple heart rates between 120-160, most are sinus tach. Patient is on Prednisone 40 mg, started today for 5 more days, levothryroxine 50 mcg, levofloxacin 750 mg once a day for 5 days since last night, control Juleber for 28 days, [id number] mg once daily. On triage, pain is denied, standing is noted to aggravate Sx, nothing is noted to alleviate Sx. Home medications and allergies are reviewed. Allergies Allergy/AdvReac Type Severity Reaction Status Date / Time Penicillins Allergy Unknown Verified 03/14/18 18:28 Reaction Details sulfamethoxazole Allergy Hives Verified 03/14/18 18:28 [From Bactrim] trimethoprim [From Bactrim] Allergy Hives Verified 03/14/18 18:28 SEASONAL Allergy Itching Uncoded 03/14/18 18:28 EYES/SNEEZING Home Medications Levofloxacin 750 mg PO DAILY 03/14/18 [History Confirmed 03/14/18] - History of Current Complaint Chief Complaint: EDDysrhythmPalp Stated Complaint: HIGH BLOOD PRESSURE Hx Obtained From: Patient Hx Last Menstrual Period: 02/07/17 Onset/Duration: Started Weeks Ago - tachycardia onset three days ago, hot flashes a few days before, right calf pain yesterday, Still Present Timing: Constant, Lasting Days - tachycardia onset three days ago, hot flashes a few days before, right calf pain yesterday Current Severity: None - pain denied on triage Pain Intensity: 0 Pain Scale Used: 0-10 Numeric - 0/10 Chest Pain Radiates: No Character: Pounding Aggravating Factor(s): Other: - standing Alleviating Factor(s): Nothing Associated Signs and Symptoms: Positive: Headaches, Palpitations - tachycardia, Calf Pain/Swelling - right calf pain, Other: - elevated BP, hot flashes - Allergy/Home Medications Allergies/Adverse Reactions: Allergies Allergy/AdvReac Type Severity Reaction Status Date / Time Penicillins Allergy Unknown Verified 03/14/18 18:28 Reaction Details sulfamethoxazole Allergy Hives Verified 03/14/18 18:28 [From Bactrim] trimethoprim [From Bactrim] Allergy Hives Verified 03/14/18 18:28 SEASONAL Allergy Itching Uncoded 03/14/18 18:28 EYES/SNEEZING Home Medications: Home Medications Levofloxacin 750 mg PO DAILY 03/14/18 [History Confirmed 03/14/18] PMH/Surg Hx/FS Hx/Imm Hx Endocrine/Hematology History: Denies: Hx Diabetes, Hx Thyroid Disease Cardiovascular History: Denies: Hx Hypertension, Hx Pacemaker/ICD Respiratory History: Denies: Hx Asthma, Hx Chronic Obstructive Pulmonary Disease (COPD) GI History: Denies: Hx Ulcer History: Denies: Hx Renal Disease Sensory History: Denies: Hx Hearing Aid Psychiatric History: Denies: Hx Panic Disorder - Cancer History Cancer Type, Location and Year: 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 APPENDECTOMY. cleft palate - Immunization History Date of Tetanus Vaccine: UNKNOWN Date of Influenza Vaccine: NONE Infectious Disease History: No Infectious Disease History: Denies: Hx Clostridium Difficile, Hx Hepatitis, Hx Human Immunodeficiency Virus (HIV), Hx of Known/Suspected MRSA, Hx Shingles, Hx Tuberculosis, Hx Known/ Suspected VRE, Hx Known/Suspected VRSA, History Other Infectious Disease, Traveled Outside the [place] in Last 30 Days - Family History Known Family History: Positive: Cardiac Disease - father AR, paternal grandfather with cardiac disease Negative: Seizure Disorder - Social History Alcohol Use: None Hx Substance Use: No Substance Use Type: Reports: None Hx Tobacco Use: No Smoking Status (MU): Never Smoked Tobacco Have You Smoked in the Last Year: No Review of Systems Positive: Other - POSITIVE - HOT FLASHES Positive: Palpitations - TACHYCARDIA , Other - POSITIVE - ELEVATED BP Positive: Other - POSITIVE - RIGHT CALF PAIN Positive: Headache All Other Systems Reviewed And Are Negative: Yes Physical Exam - Summary Physical Exam Summary: Appearance: Well-appearing, moderate pain distress, well-nourished Skin: Warm, color reflects adequate perfusion, dry Head: Normal Head/Face inspection, atraumatic Eyes: Conjunctiva clear ENT: Normal inspection Neck: Supple, no nodes, no JVD Respiratory: Lungs clear, normal breath sounds, no respiratory distress Cardio: tachycardia, No murmur, pulses normal, brisk capillary refill Abdomen: Soft, nontender Bowel sounds: Present Musculoskeletal: Strength Intact/ROM intact, no calf tenderness, no edema. Psychological: Normal Neuro: A&O x3, CN II-XII intact, motor function 5/5, sensation intact, cerebellar normal; GCS 15 Triage Information Reviewed: Yes Vital Signs On Initial Exam: Initial Vitals Temp Pulse Resp BP Pulse Ox 98.4 F 138 16 148/89 100 03/14/18 18:01 03/14/18 18:01 03/14/18 18:01 03/14/18 18:01 03/14/18 18:01 Vital Signs Reviewed: Yes Diagnostics - Vital Signs Vital Signs Temp Pulse Resp BP Pulse Ox 03/14/18 18:01 98.4 F 138 16 148/89 100 - Laboratory Result Diagrams: 03/14/18 19:02 03/14/18 19:02 Lab Statement: Any lab studies that have been ordered have been reviewed, and results considered in the medical decision making process. - Radiology CXR Radiology Interpretation Completed By: Radiologist Summary of Radiographic Findings: IMPRESSION: No radiographic evidence for acute cardiopulmonary abnormality on this. portable chest x-ray. THIS REPORT WAS REVIEWED BY ED PHYSICIAN. - CT brain ct CT Interpretation Completed By: Radiologist Summary of CT Findings: BRAIN CT IMPRESSION: 1. No acute intracranial abnormality. 2. No change from the comparison study. THIS REPORT WAS REVIEWED BY ED PHYSICIAN. CTA CHEST/THORAX CT Interpretation Completed By: Radiologist Summary of CT Findings: IMPRESSION: No acute findings. Specifically, no pulmonary embolism. THIS REPORT WAS REVIEWED BY ED PHYSICIAN. - EKG 1813 Cardiac Rate: Tachycardia - RATE OF 136 BPM EKG Rhythm: Sinus Tachycardia EKG Comparison: No Significant Change - COMPARED TO 03/10/2017 EKG Summary of EKG Findings: EKG showed sinus tachycardia with rate of 136 BPM, nl AVIVCT, nl QTc, nl axis, no acute changes, no significant change compared to 03/10 EKG 1838 Cardiac Rate: Tachycardia - rate of 158 bpm EKG Rhythm: Sinus Tachycardia EKG Comparison: No Significant Change - compared to earlier EKG Summary of EKG Findings: EKG showed sinus tachycardia with rate of 158 BPM, nl AVIVCT, prolonged QTc 543, nl axis, no acute changes, no significant change compared to earlier EKG 1839 Cardiac Rate: Tachycardia - rate of 149 bpm EKG Rhythm: Sinus Tachycardia EKG Comparison: No Significant Change - compared to earlier EKG Summary of EKG Findings: EKG showed sinus tachycardia with rate of 149 BPM, nl AVIVCT, nl QTc, nl axis, no acute changes, no significant change compared to earlier EKG Re-Evaluation - Re-Evaluation First Eval Re-Evaluation Time: 19:40 Change: Unchanged Comment: Pulse 116, BP is 83 diastolic, still has BURRELL, brain CT to be ordered. Second Eval Re-Evaluation Time: 20:13 Change: Unchanged Comment: Orthostatic for pulse. Laying BP 164/100 pulse 125. Sitting BP 153/112 , pulse 129, she states that she feels drunk funny. Standing 165/127 pulse 142. Patient went up to 150 then back down to 145 s soon as she stood up. When she stands up, she states that there was a pressure but not pain in chest. Third Eval Re-Evaluation Time: 20:33 Change: Unchanged Comment: Patient is noted to be tachycardic still with pulse of 142, BP was 163/ 100. Patient to be given Lopressor 5 mg IV. Fourth Eval Re-Evaluation Time: 20:56 Change: Improved Comment: After Lopressor, pulse is improved to 85. BP improved to 140s systolic. Fifth Eval Re-Evaluation Time: 22:10 Change: Unchanged Comment: Results of labs and tests were discussed with patient. Patient will be discharged to home and follow up with PCP, patient is agreeable with discharge. Disposition - Course Course Of Treatment: Patient is a 33 y/o F presenting to ED with complaints of tachycardia, elevated BP, BURRELL, hot flashes. She was seen by provider CHARLEEN Delgado yesterday, EKG was done and patient was told that her "heart is fast". She states that he treated her as sinus infection, patient notes Hx of sinus infection. Three days ago tachycardia onset, which she describes as a pounding sensation. Patient woke up with this Sx. She notes that a few days before tachycardia onset, she had several episodes of hot flashes and is continuing to do so. After tachycardia onset, she measured BP at home three days ago to be 138 /83. She reports several other BP measurements over the course of the past few days with the highest being 163/96. Patient also reports pulse was 134 at 1630 today. When asked if she feels pain, she states "I just feel funny. I feel like I'm drunk." When patient stood up, SVT was noted on monitor briefly. She reports frontal BURRELL which she describes as a pressure. She notes that 03/10/2017, she was here for chest pain and right arm numbness. First day of last period was 03/11/18, states that it was irregular, noting that she bled for one day minimally. Patient also reports some right calf pain since yesterday. PMHx of kidney stones. She claims Hx of superficial thrombophlebitis. Patient states that she has never been on blood thinners. No Hx of HTN is reported. Patient denies smoking cigarettes, alcohol consumption. She notes that she drinks fluids frequently. FMHx of cardiac disease, paternal grandmother, father had AR. PSHx appendectomy, tonsillectomy, cleft palate repair. Scheduled for surgery in two days for left wrist, states that she injured it a couple of years ago. BP 153/105, o2 98. Multiple heart rates between 120-160, most are sinus tach. On physical exam, patient is noted to be tachycardic, moderate pain distress. 1st EKG showed sinus tachycardia with rate of 136 BPM, nl AVIVCT , nl QTc, nl axis, no acute changes, no significant change compared to 03/10/17 EKG. 2nd and 3rd EKGs were done to attempt to capture SVT briefly seen on monitor. 2nd EKG showed sinus tachycardia with rate of 158 BPM, nl AVIVCT, prolonged QTc 543, nl axis, no acute changes, no significant change compared to earlier EKG. 3rd EKG showed sinus tachycardia with rate of 149 BPM, nl AVIVCT, nl QTc, nl axis, no acute changes, no significant change compared to earlier EKG. BRAIN CT IMPRESSION: 1. No acute intracranial abnormality. 2. No change from the comparison study. CTA CHEST/THORAX IMPRESSION: No acute findings. Specifically, no pulmonary embolism. CXR IMPRESSION: No radiographic evidence for acute cardiopulmonary abnormality on this. portable chest x-ray. Labs showed absolute neuts 9.1, d-dimer < 200, glucose 160, lactic acid 2, trop 0, CK -MB 1.3, TSH 0.58, beta HCG 0.82. UA showed 2+ urine glucose. UA tox was negative. During ED course, patient received fluids, Zofran 4 mg IV ED ONCE ONE , morphine 4 mg IV ED ONCE ONE, Lopressor 5 mg IV ED ONCE, Lopressor 12.5 mg PO ED ONCE ONE. Patient's pulse and BP was improved after lopressor. Patient discharged to home and advised to follow up with PCP. Patient is agreeable with this. Dx of hypertensive crisis, tachycardia. - Diagnoses Provider Diagnoses: Hypertensive crisis, Tachycardia Discharge - Sign-Out/Discharge Documenting (check all that apply): Patient Departure - discharge - Discharge Plan Condition: Stable Disposition: HOME Prescriptions: Metoprolol Tartrate TAB* [Lopressor TAB*] 12.5 mg PO DAILY #15 tab Patient Education Materials: Hypertensive Crisis (ED), Tachycardia (ED) Referrals: Kain Delgado [Primary Care Provider] - 2 Days Additional Instructions: Your labs and xray reports are included in this report. Your thyroid tests were normal. You serum glucose was elevated but this was not a fasting glucose. You also showed glucose in your urine. You should check this with Mr. Delgado in 1-2 days. We gave you metoprolol 5mg IV in the ER and it lowered your pulse and blood pressure nicely from 130's to 85, and BP from 160's to 140's. We have given you another dose of metoprolol 12.5mg in the ER that will carry you through the night. You should continue to monitor your blood pressure and pulse. If you pulse is greater than 120, or less than 60, contact your provider. If you blood pressure is higher than 110 diastolic (the bottom number), or lower than 100 systolic (the top number) you should contact your provider. Dr. Priest has recommended that you stop the prednisone for now, as it may have contributed to your elevated blood pressure. You may continue the antibiotic. Dr. Priest has prescribed metoprolol 12.5mg orally that you may start once a day , starting tomorrow. Return to the ER if you have any new or worsening symptoms. - Attestation Statements Document Initiated by Susy: Yes Documenting Scribe: ALF VIVAS Provider For Whom Susy is Documenting (Include Credential): TERESITA PRIEST MD Scribe Attestation: ALF Joseph , scribed for TERESITA PRIEST MD on 03/14/18 at 2302. Status of Scribe Document: Ready
[2018-03-14] MEDS ORDERED: Adenosine* 3 MG/ML VIAL ONE (18:39)
[2018-03-14 18:52] LABS: Urine Appearance Cloudy; Urine Bilirubin Negative (Negative); Urine Blood Negative (Negative); Urine Color Yellow; Urine Glucose 2+(150 mg/dL) (Negative); Urine Ketones Negative (Negative); Urine Nitrite Negative (Negative); Urine Protein Negative (Negative); Urine Specific Gravity 1.009 (1.010-1.030); Urine Urobilinogen Negative (Negative)
[2018-03-14 19:10] LABS: Barbiturates Urine Screen None Detected (None Detect); Benzodiazepine Urine Screen None Detected (None Detect); Urine Cannabinoids Screen None Detected (None Detect)
[2018-03-14 19:13] LABS: ABS Basophils 0 10^3/ul (0-0.2); ABS Eosinophils 0 10^3/ul (0-0.6); ABS Monocytes 0.3 10^3/ul (0-0.8); ABS Neutrophils 9.1 10^3/ul (1.5-7.7); ABS Nucleated RBC 0 10^3/ul; Eosinophil % 0 %; Hematocrit 45 % (35-47); Hemoglobin 15.3 g/dl (12.0-16.0); Lymphocyte % 9.9 %; Mean Corpuscular HGB Conc 34 g/dl (31-36); Mean Corpuscular Hemoglobin 30 pg (27-31); Mean Corpuscular Volume 87 fL (80-97); Nucleated Red Blood Cells % 0; Platelet Count 361 10^3/ul (150-450); Red Blood Count 5.15 10^6/ul (4.00-5.40); Red Cell Distribution Width 13 % (10.5-15); White Blood Count 10.4 10^3/ul (3.5-10.8)
--- OUTSIDE RECORDS SUMMARY | 2018-03-14 19:16 | XMS REPORT | Continuity of Care Document ---
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 [place] [address] www.[facility], Emre Lawrence MD, Lab. Director Unless otherwise specified, testing [place] [address] 10 Updated reference range on new analyzer 11 Updated reference range on new analyzer 12 Concerning GFR Guidelines for Americans: Normal function or mild renal disease, if clinically at risk: >/=60 mL/min Moderately decreased: 30-59 Severely decreased: 15-29 Renal failure: <15 13 Concerning GFR Guidelines: Normal function or mild [...] drugs that are excreted by the kidneys. 14 Updated Reference Range 15 Updated reference range on new analyzer 16 Updated reference range on new analyzer 17 Concerning GFR Guidelines for Americans: Normal function or mild renal disease, if clinically at risk: >/=60 mL/min Moderately decreased: 30-59 Severely decreased: 15-29 Renal failure: <15 18 Concerning GFR Guidelines: Normal function or mild [...] drugs that are excreted by the kidneys. 19 Updated Reference Range 20 Unless otherwise specified, testing performed by [place] [address] 21 Reference range: 0 to 19 Unit: Units [...] be monitored and testing repeated. Performed by [facility], [address] [place] [id number] www.[facility], Joe Lopez MD, Lab. Director Unless otherwise specified, testing performed by [facility] [place] [address] 22 Concerning GFR Guidelines for Americans: Normal function or mild renal disease, if clinically at risk: >/=60 mL/min Moderately decreased: 30-59 Severely decreased: 15-29 Renal failure: <15 23 Concerning GFR Guidelines: Normal function or mild [...] drugs that are excreted by the kidneys. 24 Microbiology results SOURCE [facility]U FINAL RESULT No growth 25 Unless otherwise specified, testing performed by [place] [address] 26 Unless otherwise specified, testing performed by [facility] [address] [address] 27 May indicate a current or previous infection. Unless otherwise specified, testing performed by [facility] [address] [address] 28 May indicate a current or previous infection. Unless otherwise specified, testing performed by [facility] [address] [place] [address] 29 Unless otherwise specified, testing performed by [facility] [address] [address] 30 Unless otherwise specified, testing performed by [facility] [place] [address] 31 INTERPRETATION OF RESULTS: < 20 UNITS NEGATIVE 20-30 UNITS WEAK POSITIVE > 30 UNITS MODERATE TO STRONG POSITIVE The following result was obtained with the [employer] QUANTA Lite Gliadin IgA II. Results obtained with other manufacturers' assay methods may not be used interchangeably. The magnitude of the reported IgA level cannot be correlated to an endpoint titer. 32 INTERPRETATION OF RESULTS: < 20 UNITS NEGATIVE 20-30 UNITS WEAK POSITIVE > 30 UNITS MODERATE TO STRONG POSITIVE The following result was obtained with the INOVA QUANTA Lite Gliadin IgG II. Results obtained with other manufacturers' assay methods may not be used interchangeably. The magnitude of the reported IgG levels cannot be correlated to an endpoint titer. 33 INTERPRETATION OF RESULTS: < 20 UNITS NEGATIVE 20-30 UNITS WEAK POSITIVE > 30 UNITS MODERATE TO STRONG POSITIVE The following result was obtained with the INOVA QUANTA Lite h-tTG IgA KRANTHI. Results obtained with other manufacturers' assay methods may not be used interchangeably. The magnitude of the reported IgA level cannot be correlated to an endpoint titer. Performed at [address] [place] [address] 34 INTERPRETATION OF RESULTS: < 20 UNITS NEGATIVE 20-30 UNITS WEAK POSITIVE > 30 UNITS MODERATE TO STRONG POSITIVE The following result was obtained with the INOVA QUANTA Lite h-tTG IgG KRANTHI. Results obtained with other manufacturers' assay methods may not be used interchangeably. The magnitude of the reported IgG levels cannot be correlated to an endpoint titer. Performed at [address] [place] [address] Unless otherwise specified, testing performed by [facility] [address] [address] 35 A Negative serologic test for Lyme Disease indicates no serologic evidence of infection with B burgdorferi at the time this specimen was collected. A repeat specimen should be collected in 2 to 4 weeks if clinically indicated. Unless otherwise specified, testing performed by [facility] [place] [address] 36 Unless otherwise specified, testing performed by [facility] [place] [address] 37 Microbiology results SOURCE MIDU FINAL RESULT No growth 38 4.6 Specimen Slightly Hemolyzed 39 Concerning GFR Guidelines for Americans: Normal function or mild renal disease, if clinically at risk: >/=60 mL/min Moderately decreased: 30-59 Severely decreased: 15-29 Renal failure: <15 40 Concerning GFR Guidelines: Normal function or mild [...] drugs that are excreted by the kidneys. 41 This sample is drawn by:[facility] 42 Concerning GFR Guidelines for Americans: Normal function or mild renal disease, if clinically at risk: >/=60 mL/min Moderately decreased: 30-59 Severely decreased: 15-29 Renal failure: <15 43 Concerning GFR Guidelines: Normal function or mild [...] are excreted by the kidneys. Procedures Date Code Description Status 03/13/2018 06951 Electrocardiogram Complete Completed 07/03/2017 45125 Physical Therapy Eval Completed 07/03/2017 22573 Nerve Conduction 7-8 Studies Completed 07/03/2017 22960 Needle Electromyography Complete, Five Or More Muscles Completed Studied Encounters Type Date Location Provider Dx Diagnosis Office Visit 2018 1:00p Kain Armstrong PA E03.9 Hypothyroidism, unspecified F33.1 Major depressive disorder, recurrent, moderate G44.89 Other headache syndrome B27.90 Infectious mononucleosis, unspecified without complication M79.7 Fibromyalgia G47.00 Insomnia, unspecified M54.12 Radiculopathy, cervical region Z68.26 Body mass index (BMI) 26.0-26.9, adult Office Visit 12/11/2017 10:40a Kain Armstrong PA E03.9 Hypothyroidism, unspecified L74.4 Anhidrosis R53.83 Other fatigue B27.90 Infectious mononucleosis, unspecified without complication G44.89 Other headache syndrome R20.0 Anesthesia of skin M54.12 Radiculopathy, cervical region M79.7 Fibromyalgia N39.0 Urinary tract infection, site not specified F33.1 Major depressive disorder, recurrent, moderate Z32.02 Encounter for test, result negative Z68.26 Body mass index (BMI) 26.0-26.9, adult Office Visit 11/05/2017 10:40a Kain Armstrong PA L74.4 Anhidrosis R20.0 Anesthesia of skin M54.12 Radiculopathy, cervical region G44.89 Other headache syndrome M79.7 Fibromyalgia E03.9 Hypothyroidism, unspecified N76.0 Acute vaginitis B27.90 Infectious mononucleosis, unspecified without complication Z68.26 Body mass index (BMI) 26.0-26.9, adult Office Visit 09/25/2017 8:40a Kain Armstrong PA G44.89 Other headache syndrome R53.83 Other fatigue L74.4 Anhidrosis R20.0 Anesthesia of skin B27.90 Infectious mononucleosis, unspecified without complication M79.7 Fibromyalgia E03.9 Hypothyroidism, unspecified Z68.27 Body mass index (BMI) 27.0-27.9, adult Office Visit 09/17/2017 10:20a Kain Armstrong PA G44.89 Other headache syndrome R53.83 Other fatigue L74.4 Anhidrosis R20.0 Anesthesia of skin M54.12 Radiculopathy, cervical region B27.90 Infectious mononucleosis, unspecified without complication Z68.26 Body mass index (BMI) 26.0-26.9, adult Office Visit 09/11/2017 11:40a Kain Armstrong PA R53.83 Other fatigue R19.7 Diarrhea, unspecified R11.2 Nausea with vomiting, unspecified M54.2 Cervicalgia Office Visit 06/26/2017 11:00a Dorothea Melgar, RN [employer] M54.2 Cervicalgia M25.511 Pain in RIGHT shoulder M25.512 Pain in LEFT shoulder N76.0 Acute vaginitis R23.9 Unspecified skin changes M25.531 Pain in RIGHT wrist R20.2 Paresthesia of skin Z68.28 Body mass index (BMI) 28.0-28.9, adult Office Visit 03/13/2017 1:40p Dorothea Melgar, J01.00 Acute maxillary RN [employer] sinusitis, unspecified R07.9 Chest pain, unspecified Z68.29 Body mass index (BMI) 29.0-29.9, adult Office Visit 07/18/2016 11:40a Kendra Rose PA M25.511 Pain in RIGHT shoulder M54.2 Cervicalgia R03.0 Elevated blood-pressure reading, w/o diagnosis of htn J02.9 Acute pharyngitis, unspecified Office Visit 06/27/2016 11:00a Kendra Rose PA M25.511 Pain in RIGHT shoulder M54.2 Cervicalgia R03.0 Elevated blood-pressure reading, w/o diagnosis of htn Office Visit 06/06/2016 11:20a Kendra Rose PA M25.511 Pain in RIGHT shoulder M54.2 Cervicalgia Office Visit 04/05/2016 2:20p Kendra Rose PA J01.90 Acute sinusitis, unspecified I10 Essential (primary) hypertension Z77.120 Contact with and (suspected) exposure to mold (toxic) Z13.9 Encounter for screening, unspecified Z32.02 Encounter for test, result negative Office Visit 06/23/2015 12:40p Dorothea Melgar, J01.90 Acute sinusitis, RN [employer] unspecified Office Visit 05/19/2015 10:00a Dorothea Melgar, R35.0 Frequency of RN [employer] micturition K64.8 Other hemorrhoids N76.0 Acute vaginitis J30.9 Allergic rhinitis, unspecified F33.0 Major depressive disorder, recurrent, mild Office Visit 04/13/2015 3:30p Dorothea Melgar, J01.00 Acute maxillary RN MS [employer] sinusitis, unspecified Office Visit 11/17/2014 10:20a Christina Bass MD 279.49 Autoimmune Disease, Not Elsewhere Classified 780.79 Malaise And Fatigue Other 789.9 Abdomen & Pelvis Symptoms Other 788.41 Urinary Frequency 311 Depressive Disorder Not Elsewhere Spec 300.02 Anxiety Disorder Generalized Office Visit 10/19/2014 10:00a Christina Bass MD 780.79 Malaise And Fatigue Other 789.9 Abdomen & Pelvis Symptoms Other 788.41 Urinary Frequency Office Visit 10/03/2014 1:40p Christina Bass MD 789.9 Abdomen & Pelvis Symptoms Other 780.79 Malaise And Fatigue Other 788.41 Urinary Frequency 346.10 Migraine Common W/O Intractable 311 Depressive Disorder Not Elsewhere Spec 300.02 Anxiety Disorder Generalized 524.60 Temporomandibular Joint Disorders Unspec Office Visit 09/01/2014 2:20p Christina Bass MD 789.9 Abdomen & Pelvis Symptoms Other 346.10 Migraine Common W/O Intractable 311 Depressive Disorder Not Elsewhere Spec 300.02 Anxiety Disorder Generalized 524.60 Temporomandibular Joint Disorders Unspec Office Visit 07/01/2013 1:40p Dorothea Melgar, 789.9 Abdomen & Pelvis RN MS [employer] Symptoms Other Office Visit 05/18/2013 8:20a Christina Bass MD 346.10 Migraine Common W/O Intractable 311 Depressive Disorder Not Elsewhere Spec Office Visit 04/09/2013 9:40a Dorothea Melgar, 346.10 Migraine Common W/O RN MS [employer] Intractable 780.79 Malaise And Fatigue Other 300.02 Anxiety Disorder Generalized 311 Depressive Disorder Not Elsewhere Spec Office Visit 01/29/2013 10:00a Dorothea Melgar, RN MS [employer] 626.6 Metrorrhagia 524.64 TMJ Sounds Open/Close Jaw 300.02 Anxiety Disorder Generalized Office Visit 12/25/2012 10:40a Dorothea Melgar, 524.64 TMJ Sounds Open/Close RN MS [employer] Jaw 784.0 Headache 300.02 Anxiety Disorder Generalized Office Visit 11/26/2012 9:00a Christina Bass MD 784.0 Headache 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 300.02 Anxiety Disorder Generalized 311 Depressive Disorder Not Elsewhere Spec Office Visit 10/15/2012 10:00a Christina Bass MD 784.0 Headache 300.02 Anxiety Disorder Generalized 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 Office Visit 09/29/2012 9:00a Christina Bass MD 784.0 Headache 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 300.02 Anxiety Disorder Generalized 311 Depressive Disorder Not Elsewhere Spec Plan of Treatment Future Appointment(s):03/26/2018 10:40 am - Kain Delgado PA at [id number] - Kain Delgado PAJ01.90 Acute sinusitis, unspecifiedNew Medication: Prednisone 20 mg - 2 by mouth every morningLevofloxacin 750 mg - 1 by mouth every day for 5 daysComments:will treat with prednisone and AbxE03.9 Hypothyroidism, unspecifiedComments:stable on meds 11/2017. will recheck thyroid orothcnizoilwqF12.89 Other headache syndromeComments:long h/o BURRELL but worse at this point. h/o seeing Neuro and Rheum. Rheum labs NL. MRI Brain NLA/Pstable w/o medsG47.00 Insomnia, unspecifiedComments:stable at this lcjzeV49.1 Major depressive disorder, recurrent, moderateComments:high stress at home. alcoholic . verbally abusive. no help at home. increased the lexaproto 1 10mg qhs. feels like could be helping. change in AM dosing. bmhlliX60.0 Tachycardia, unspecifiedComments:see twrhqG58.2 PalpitationsComments :EKG sinus tachy. ?infection vs thyroiditis. Treated above. f/u next week if not improved.Z68.27 Body mass index (BMI) 27.0-27.9, adult
--- OUTSIDE RECORDS SUMMARY | 2018-03-14 19:16 | XMS REPORT | Continuity of Care Document ---
:1985 External Reference #:[id number] Author Name Tana Linton Care Team Providers Name Role Phone Dorothea Hayes, HVAC OPERATIONS TECHNICIAN Primary Care Physician Unavailable Payers Type Date Identification Numbers Payment Provider Subscriber Policy Number: [id number] Leeroy Schaeffer Group Number: [id number] [address] PayID: [id number] [place] [address] Advance Directives Description No Information Available Problems Date Description Provider Status Onset: 07/29/2017 Other specific joint derangements of Med Mulligan MD Active right wrist, not elsewhere classified Onset: 12/24/2017 Late effect of sprain AND/OR strain Med Mulligan MD Active without tendon injury Family History Date Family Member(s) Problem(s) Comments General Diabetes General Heart Disease General Hypertension General Stroke Social History Type Date Description Comments Sex Unknown 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 ETOH Use Denies alcohol use Tobacco Use Start: Unknown Patient has never smoked Smoking Status Reviewed: 02/24/18 Patient has never smoked Exercise Type/Frequency Exercises regularly Allergies, Adverse Reactions, Alerts Date Description Reaction Status Severity Comments 02/02/2013 Bactrim Hives Active 02/02/2013 Penicillin Active Medications Medication Date Status Form Strength Qnty SIG Indications Ordering Provider Multivitamins 02/02/ Active Capsules 30caps 1 capsule Jenny Coppola daily Kirt Whyte Tylenol / Active Tablets 325mg 2 tabs po Unknown 0000 prn Escitalopram 0000/ Active Tablets 10mg 30tabs 1 po qd Unknown Oxalate 0000 Microgestin Fe 00/ Active Tab 1 tab po Unknown 0000 daily Ibuprofen 00/ Active Tablets 800mg 90tabs 1 cap po Unknown 0000 prn Synthroid / Active Tablets 1 by mouth Unknown 0000 every day Nortriptyline HCL 02/02/ Hx Capsules 10mg 60caps 1-2 caps Jenny MRay 2012 - by mouth Isabell, 07/12/ every M.D. 2017 night as directed Cyclobenzaprine / Hx Tablets 10mg 1 tab po Unknown HCL 0000 - hs prn 2017 Medications Administered in Office Medication Date Status Form Strength Qnty SIG Indications Ordering Provider Celestone 3 mg Administered Injection Med and 3mg 018 MD Isaak Immunizations Description No Information Available Vital Signs Date Vital Result Comment 02/24/2018 2:57pm Height 61.25 inches 5'1.25" Weight 149.00 lb BP Systolic 180 mmHg will recheck at the end of appointment BP Diastolic 110 mmHg will recheck at the end of appointment Respiratory Rate 15 /min Body Temperature 99.1 F Pain Level 8 BMI (Body Mass Index) 27.9 kg/m2 01/07/2018 11:12am Height 61.25 inches 5'1.25" Heart Rate 72 /min BP Systolic 124 mmHg BP Diastolic 70 mmHg Body Temperature 97.8 F Pain Level 4 10/21/2017 2:39pm Height 61.25 inches 5'1.25" Pain Level 1 09/09/2017 2:18pm Height 61.25 inches 5'1.25" Heart Rate 86 /min Respiratory Rate 16 /min Body Temperature 97.8 F Pain Level 3 07/29/2017 2:20pm Height 61.25 inches 5'1.25" Weight 139.00 lb Heart Rate 65 /min BP Systolic 138 mmHg BP Diastolic 85 mmHg Body Temperature 98.0 F BMI (Body Mass Index) 26.0 kg/m2 02/02/2013 9:04am Heart Rate 60 /min BP Systolic Sitting 130 mmHg BP Diastolic Sitting 64 mmHg Respiratory Rate 16 /min Results Description No Information Available Procedures Date Code Description Status 07/29/2017 33618 Inject/Drain Joint/Bursa Intermediate W/O US Completed Encounters Type Date Location Provider Dx Diagnosis Office Visit 01/07/2018 [facility] S63.592D Other specified 10:45a Services Of sprain of left [facility] wrist, subsequent encounter Office Visit 12/24/2017 [facility] S63.592D Other specified 10:45a Services Of sprain of left [facility] wrist, subsequent encounter Office Visit 10/21/2017 [facility], M24.831 Ot specific joint 2:15p Services Of derangements of [facility] right wrist, [facility] M25.531 Pain in right wrist Office Visit 09/09/2017 [facility] Med M24.831 Oth specific 2:15p Of Mathieu Mulligan MD joint derangements of right wrist, [facility] Office Visit 07/29/2017 [facility] M24.831 Oth specific 2:00p Of Mathieu Mulligan MD joint derangements of right wrist, [facility] Office Visit 06/03/2016 Neurohospitalist Vladislav G43.009 Migraine w/o 11:07a [facility], aura, not MD intractable, w/o status migrainosus R20.2 Paresthesia of skin Office Visit 02/02/2013 9:00a [place] 346.90 Migraine Unspec Neurologic Kirt Whyte W/O Intractable [facility] W/O Status Migrainosus 524.60 Temporomandibular Joint Disorders Unspec Office Visit 09/24/2012 1:23p [place] [facility] Nancy Barksdale, 346.91 Migraine Unspec [facility] W/ Intractable W/O Status Migrainosus 787.02 Nausea Alone 782.0 Skin Sensation Disturbance Plan of Treatment Future Appointment(s):03/31/2018 10:30 am - Med Mulligan MD at [facility]03/16/2018 11:30 am - Med Mulligan MD at [facility]
--- OUTSIDE RECORDS SUMMARY | 2018-03-14 19:16 | XMS REPORT | Continuity of Care Document ---
:1985 External Reference #:[id number] Author Name Ginny Mayo Care Team Providers Name Role Phone Kain Delgado PA Primary Care Physician Unavailable Payers Type Date Identification Numbers Payment Provider Subscriber Effective: 2010 Policy Number: [id number] [facility] Madhuri Schaeffer PayID: [id number] [address] [place] [address] Advance Directives Description No Information Available Problems Date Description Provider Status Onset: 01/29/2013 Dysfunctional uterine bleeding Dorothea Hayes RN [place] [facility] Active Onset: 01/29/2013 Temporomandibular joint click Dorothea Hayes RN [place] [facility] Active Onset: 01/29/2013 Generalized anxiety disorder Dorothea Hayes RN [place] [facility] Active Onset: 01/29/2013 Headache Dorothea Hayes RN [place] [facility] Active Onset: 09/15/2017 Infectious mononucleosis Kain Delgado [...] 03/13/ Hx Tablets 20mg 10tabs 2 by Obie Pierre, 2019 - mouth Luana 03/18/ lilia Garcia MD 2019 morning Levofloxacin 03/13/ Hx Tablets 750mg 5tabs 1 by J01.90 [place], 2019 - mouth Luana 03/18/ every day [...] Tablets 100mg 30tabs 1 tab oral G44.89 Macaeleuterio, Succinate on onset, Luana may repeat MD Jose dose x1 after 2 hours if not resolved. Ibuprofen 06/06/2016 Active Tablets 600mg 1 tablet per Macadam, oral up to Luana 3x/daily MD Jose Blood Pressure 04/05/2016 Active Misc 1units take blood J01.90 [facility] , Monitor pressure at [facility] Digital/Auto-Infl various MD Jose ation times during the day and record. Microgestin 03/29? 10/01/2012 Active Tablets 1-20mg Junior, -mcg Christina Marino MD Nitrofurantoin 12/11/2017 - Hx Capsules 100mg 14caps 1 by mouth N39.0 Ignacio Monohyd Macro 12/18/2017 twice a day Luana [...] Tablets 250mg 6tabs ,2 tabs day J01.00 Abigail, 06/26/2017 one and 1 Dorothea tab daily CHELSEY Hernandez MS till gone [facility] Prednisone 03/13/2017 - Hx Tablets 20mg 5tabs one tab J01.00 [place], 06/26/2017 daily x 5 Dorothea days( take CHELSEY Hernandez MS in in the [facility] morning with food) Azithromycin 11/28/2016 - Hx [...] Hx Capsules 100mg 90caps take 1 M25.51 [place], 07/18/2016 capsule by 1 Luana mohan three MD Jose times a day. Cyclobenzaprine 06/06/2016 - Hx Tablets 10mg 90tabs 1/2 to 1 M25.51 [place], HCL 03/13/2017 tablet by 1 Luanaher mohan three MD Jose times a day as needed muscle spasm. [...] - Hx Tablets 800mg 1 by mouth [facility], 06/06/2016 three times Luana a day as MD Jose needed Azithromycin 04/05/2016 - Hx Tablets 500mg 7tabs 1 tab per J01.90 [facility], 06/06/2016 oral daily x Luana 7 days MD Jose Fluconazole 04/05/2016 - Hx Tablets 150mg 1tabs take 1 J01.90 [facility], 06/06/2016 tablet per Luana oral once. MD Jose Prednisone 04/05/2016 - Hx Tablets 10mg 18tabs 10 mg 3 tab J01.90 [facility], 06/06/2016 x 3 days Luana then 10 mg 2 MD Jose tab x 3 days then 10 mg 1 tab x 3 days Escitalopram 07/12/2015 - Hx Tablets 10mg 90tabs 1 by mouth F32.9 [place], Oxalate 06/06/2016 every day Dorothea Hernandez RN [facility] F41.1 Doxycycline 06/23/2015 - Hx Tablets 100mg 28tabs One Tab bid J01.90 [place], Hyclate 04/05/2016 Dorothea Hernandez RN [place] [facility] Fluticasone 05/19/2015 - Hx Suspension 50mcg/Ac 16gm two spray J30.9 [place], Propionate 04/05/2016 t per each Dorothea nostril CHELSEY Hernandez MS every day [facility] Diflucan 04/19/2015 - Hx Tablets 150mg 1tabs 1 by mouth [facility], 04/05/2016 every day Luana Garcia MD Terazosin HCL 04/13/2015 - Hx Capsules 2mg 1 Caps AT [place], 06/06/[address] Dorothea De Leon) CHELSEY Hernandez [place] [facility] Naproxen 04/13/2015 - Hx Tablets 500mg 60tabs 1 by mouth [place], 06/06/2016 twice a day Dorothea as needed( CHELSEY Hernandez MS DR Vega, [facility]) For Jaw Pain Azithromycin 04/13/2015 - Hx Tablets 250mg 6tabs 2 tabs day J01.00 [facility], 04/05/2016 one and 1 Luana tab daily [...] 10mg 60caps 1 PO qd @ hs Abigail, 04/09/2013 Dorothea Hernandez, RN [place] [facility] No Work 04/09/2013 - Hx for medical 346.1 Abigail, 05/18/2013 reasons, 0 Dorothea Hernandez, 04/07/13 RN [place] [facility] 300.02 Nortriptyline HCL 04/09/2013 - Hx Capsules 25mg 30caps Take One 346.10 Abigail, 09/02/2014 Capsule By Dorothea Mouth AT C, RN MS Bedtime [facility] Custom Hearing 01/06/2013 - Hx defender [place], Protection For 07/01/2013 convertible Dorothea Industrial Setting hearing C, RN [place] 30 DB protection [facility] Custom Hearing 12/25/2012 - Hx [place], Protection [place] 01/06/2013 Dorothea ER 25 C, RN [place] [facility] Cyclobenzaprine 12/25/2012 - Hx Tablets 10mg 30tabs 1 qhs and / 524.64 [place], HCL 09/02/2014 tab q 8 hrs Dorothea prn muscle C, RN [place] spasm. [facility] Noise Cancelling 11/26/2012 - Hx Junior, Ear [...] Leave 09/29/2012 - Hx continue to limit [place] 07/01/2013 hours of daily C, RN [place] [facility] work to 8 , may increase as tolerated Astelin - Hx Solution 137mcg/S 1 puff twice a Unknown 06/06/2016 pray day Immunizations CPT Code Status Date Vaccine Lot # [id number] Given 06/26/2010 Tdap (Adacel) Ages 7 And [...] Date Facility Test Result H/L Range Note CBC with Auto Diff-fcmg 03/13/2018 [facility] WBC 8.6 K/uL 4.1-11.0 RBC 5.18 M/uL 4.00-5.40 Hemoglobin 15.4 gm/dL 12.0-16.0 Hematocrit 45.0 % 36.0-47.0 MCV 86.9 fL 80.0-97.0 MCH 29.7 pg 27.0-32.0 MCHC 34.2 g/dL 32.0-36.0 RDW 12.9 % 11.5-14.5 PLT Count 314 K/ul 140-400 MPV 8.5 FL 7.1-10.7 Neutrophil 72.9 % 35.0-75.0 Lymphocyte 20.7 % 16.0-52.0 Monocyte 5.0 % 2.0-10.0 Eosinophil 0.9 % 0.0-5.0 Basophil 0.5 % 0.0-4.0 Abs Neutrophils 6.3 K/uL 2.1-8.0 Abs Lymphocytes 1.8 K/uL 0.8-5.5 Abs Monocytes 0.4 K/uL 0.1-1.0 Abs Eosinophils 0.1 K/uL 0.0-0.5 Abs Basophils 0.0 K/uL 0.0-0.3 Laboratory test finding 03/13/2018 [facility] Free T4 [...] 0.35-4.94 HIV Combo By Eia 09/11/2017 [facility] Manager Regulatory HIV NON REACTIVE Non Reactive Combo Comprehensive [...] 5-15 14 CBC with Auto Diff-fcmg 09/11/2017 [facility] WBC 7.8 K/uL 4.1-11.0 RBC 4.67 M/uL [...] Abnormal Negative CBC with Auto Diff-fcmg 06/26/2017 [facility] W[facility] 8.8 K/uL 4.1-11.0 RBC 4.88 M/uL [...] 0.1 K/uL 0.0-0.3 Comprehensive Met Panel-FCMG 06/26/2017 [facility] Sodium 137 mmol/L 135- 146 15 Potassium [...] mmol/L 5-15 19 Laboratory test finding 06/26/2017 [facility] Esr 7 mm/hr 0-20 CCP Antibody Igg Negative Negative Laboratory test 06/26/2017 [facility] Ramya Screen-RL POSITIVE (Neg) 20 finding Affirm 05/19/2015 [facility] Trichomonas Vaginalis Negative Negative Gardnerella Vaginalis Negative Negative Nabila Species Positive Abnormal Negative Laboratory test finding 11/17/2014 [facility] Rheumatoid Factor <10.0 IU/mL 0.0-10.0 CRP (C-Reactive) [...] 0.0 K/uL 0.0-0.3 Comprehensive Metabolic (CMP) 10/19/2014 [facility] Sodium 141 mmol/L 134- 142 Potassium 4.1 [...] Bianca-1 Igg AB @ NEGATIVE INDEX (Neg) 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 Unless otherwise specified, testing performed by [facility] [place] [facility], [place] [id number] May indicate a current or previous infection. 5 May indicate a current or previous infection. Unless otherwise specified, testing performed by [facility] [address] [place] [id number] 6 <1:64 Reference range: <1:64 INTERPRETIVE INFORMATION: [...] time. Test developed and characteristics determined by [facility]. See Compliance Statement B: [facility] 7 < 1:16 Reference range: < 1:16 [...] caution. Test developed and characteristics determined by [facility]. See Compliance Statement B: [email or web address] Performed by [facility], [address] [place] [address] [email or web address], Emre Lawrence MD, Lab. Director Unless otherwise specified, testing performed by [facility] [address] [place] [id number] 8 < 1:16 Reference range: < 1:16 [...] infection. Test developed and characteristics determined by [facility]. See Compliance Statement A: [facility] 9 <1:20 Reference range: <1:20 INTERPRETIVE INFORMATION: Babesia microti Antibody, IgM Less than 1:20 ........ Negative - No significant level of detectable Babesia IgM antibodies. 1:20 .................. Equivocal - Repeat testing in 10-14 days may be helpful. Greater than 1:20 ..... Positive - IgM antibodies to Babesia detected which may indicate a current or recent infection. Test developed and characteristics determined by [facility]. See Compliance Statement A: [email or web address] Performed by [facility], [address] [place] [id number] [email or web address], Emre Lawrence MD, Lab. Director Unless otherwise specified, testing performed by [facility] [place] [facility] [address] [place] [id number] 10 Updated reference range on new analyzer [...] Unless otherwise specified, testing performed by [facility] [place] [facility] [address] [place] [address] 21 Reference range: 0 to 19 Unit: [...] be monitored and testing repeated. Performed by [facility], [address] [place] [id number] [email or web address], Joe Lopez MD, Lab. Director Unless otherwise specified, testing performed by [facility] [address] [place] [address] 22 Concerning GFR Guidelines for Americans: Normal [...] 25 Unless otherwise specified, testing performed by [facility] [address] [place] [address] 26 Unless otherwise specified, testing performed by [facility] [address] [place] [address] 27 May indicate a current or previous infection. Unless otherwise specified, testing performed by [facility] [address] [place] [address] 28 May indicate a current or previous infection. Unless otherwise specified, testing performed by [facility] [address] [place] [address] 29 Unless otherwise specified, testing performed by [facility] [address] [place] [address] 30 Unless otherwise specified, testing performed by [facility] [address] [place] [address] 31 INTERPRETATION OF RESULTS: < 20 UNITS NEGATIVE 20-30 UNITS WEAK POSITIVE > 30 UNITS MODERATE TO STRONG POSITIVE The following result was obtained with the [employer] QUANTA Lite Gliadin IgA II. Results obtained with other manufacturers' assay methods may not be used interchangeably. The magnitude of the reported IgA level cannot be correlated to an endpoint titer. 32 INTERPRETATION OF RESULTS: < 20 UNITS NEGATIVE 20-30 UNITS WEAK POSITIVE > 30 UNITS MODERATE TO STRONG POSITIVE The following result was obtained with the [employer] QUANTA Lite Gliadin IgG II. Results obtained with other manufacturers' assay methods may not be used interchangeably. The magnitude of the reported IgG levels cannot be correlated to an endpoint titer. 33 INTERPRETATION OF RESULTS: < 20 UNITS NEGATIVE 20-30 UNITS WEAK POSITIVE > 30 UNITS MODERATE TO STRONG POSITIVE The following result was obtained with the [employer] QUANTA Lite h-tTG IgA KRANTHI. Results obtained with other manufacturers' assay methods may not be used interchangeably. The magnitude of the reported IgA level cannot be correlated to an endpoint titer. Performed at [address] [place] [address] 34 INTERPRETATION OF RESULTS: < 20 UNITS NEGATIVE 20-30 UNITS WEAK POSITIVE > 30 UNITS MODERATE TO STRONG POSITIVE The following result was obtained with the [employer] QUANTA Lite h-tTG IgG KRANTHI. Results obtained with other manufacturers' assay methods may not be used interchangeably. The magnitude of the reported IgG levels cannot be correlated to an endpoint titer. Performed at [address] [place] [address] Unless otherwise specified, testing performed by [facility] [address] [place] [address] 35 A Negative serologic test for Lyme Disease indicates no serologic evidence of infection with B burgdorferi at the time this specimen was collected. A repeat specimen should be collected in 2 to 4 weeks if clinically indicated. Unless otherwise specified, testing performed by [facility] [address] [place] [id number] 36 Unless otherwise specified, testing performed by [facility] [address] [place] [id number] 37 Microbiology results [facility] FINAL RESULT [...] kidneys. Procedures Date Code Description Status 03/13/2018 63995 Electrocardiogram Complete Completed 07/03/2017 07563 Physical Therapy Eval Completed 07/03/2017 06067 Nerve Conduction 7-8 Studies Completed 07/03/2017 62614 Needle Electromyography Complete, Five Or More Muscles [...] Visit 06/26/2017 11:00a Dorothea Melgar, RN [place] [facility] M54.2 Cervicalgia M25.511 Pain in RIGHT shoulder M25.512 Pain in LEFT shoulder N76.0 Acute vaginitis R23.9 Unspecified skin changes M25.531 Pain in RIGHT wrist R20.2 Paresthesia of skin Z68.28 Body mass index (BMI) 28.0-28.9, adult Office Visit 03/13/2017 1:40p Dorothea Melgar J01.00 Acute maxillary RN [place] [facility] sinusitis, unspecified R07.9 Chest pain, unspecified Z68.29 [...] Dorothea Melgar, J01.90 Acute sinusitis, RN [place] [facility] unspecified Office Visit 05/19/2015 10:00a Dorothea Melgar, R35.0 Frequency of RN [place] [facility] micturition K64.8 Other hemorrhoids N76.0 Acute vaginitis J30.9 Allergic rhinitis, unspecified F33.0 Major depressive disorder, recurrent, mild Office Visit 04/13/2015 3:30p Dorothea Melgar, J01.00 Acute maxillary RN [facility] sinusitis, unspecified Office Visit 11/17/2014 10:20a Christina [...] Melgar, 789.9 Abdomen & Pelvis RN [facility] Symptoms Other Office Visit 05/18/2013 8:20a Christina Bass MD 346.10 Migraine Common W/O Intractable 311 Depressive Disorder Not Elsewhere Spec Office Visit 04/09/2013 9:40a Dorothea Melgar, 346.10 Migraine Common W/O RN [facility] Intractable 780.79 Malaise And Fatigue Other 300.02 Anxiety Disorder Generalized 311 Depressive Disorder Not Elsewhere Spec Office Visit 01/29/2013 10:00a Dorothea Melgar, RN [facility] 626.6 Metrorrhagia 524.64 TMJ Sounds Open/Close Jaw 300.02 Anxiety Disorder Generalized Office Visit 12/25/2012 10:40a Dorothea Melgar, 524.64 TMJ Sounds Open/Close RN [place] [facility] Jaw 784.0 Headache 300.02 Anxiety Disorder Generalized [...] 10:40 am - Kain Delgado PA at [id number] - Kain Delgado PAJ01.90 Acute sinusitis, unspecifiedNew Medication: Prednisone 20 mg - 2 by mouth every morningLevofloxacin 750 mg - 1 by mouth every day for 5 daysComments:will treat with prednisone and AbxE03.9 Hypothyroidism, unspecifiedComments:stable on meds 11/2017. will recheck thyroid qgtgziaqigvmkhT48.89 Other headache syndromeComments:long h/o BURRELL but worse at this point. h/o seeing Neuro and Rheum. Rheum labs NL. MRI Brain NLA/Pstable w/o medsG47.00 Insomnia, unspecifiedComments:stable at this zcdauL44.1 Major depressive disorder, recurrent, moderateComments:high stress at home. alcoholic . verbally abusive. no help at home. increased the lexaproto 1 10mg qhs. feels like could be helping. change in AM dosing. qeigptY62.0 Tachycardia, unspecifiedComments:see yisflZ13.2 PalpitationsComments :EKG sinus tachy. ?infection vs thyroiditis. Treated above. f/u next week if not improved.Z68.27 Body mass index (BMI) 27.0-27.9, adult
[2018-03-14 19:24] LABS: INR 0.92 (0.77-1.02)
[2018-03-14 19:29] LABS: ALT 24 U/L (7-52); AST 19 U/L (13-39); Albumin 4.9 g/dL (3.2-5.2); Albumin/Globulin Ratio 1.7 (1-3); Alkaline Phosphatase 45 U/L (34-104); Anion Gap 9 mmol/L (2-11); BUN/Creatinine Ratio 11.4 (8-20); Blood Urea Nitrogen 9 mg/dL (6-24); CO2 Carbon Dioxide 24 mmol/L (22-32); Calcium 10.1 mg/dL (8.6-10.3); Chloride 105 mmol/L (101-111); Creatine Kinase 133 U/L (10-223); EGFR Non-African American 83.8 (>60); Globulin 2.9 g/dL (2-4); Glucose 160 mg/dL (70-100); Magnesium 2.2 mg/dL (1.9-2.7); Potassium 3.8 mmol/L (3.5-5.0); Sodium 138 mmol/L (135-145); Total Protein 7.8 g/dL (6.4-8.9)
[2018-03-14] MEDS ORDERED: Iohexol 350* (CONTRAST) 500 ML MDV IV ONE (19:33)
[2018-03-14 19:38] LABS: HCG Pregnancy 0.82 mIU/mL
[2018-03-14] MEDS ORDERED: Morphine VIAL* 4 MG/ML VIAL (1 ml vial) IV ONE (19:40)
[2018-03-14 19:42] LABS: Alcohol < 10 mg/dL (<10)
[2018-03-14] MEDS ORDERED: Ondansetron INJ* 2 MG/ML VIAL IV ONE (19:42)
[2018-03-14 19:57] LABS: TSH (Thyroid Stimulating Horm) 0.58 mcIU/mL (0.34-5.60)
[2018-03-14] MEDS ORDERED: Metoprolol Tartrate IV* 1 MG/ML 5 ML VIAL IV ONE (20:28)
[2018-03-14] MEDS ORDERED: Metoprolol Tartrate TAB* 25 MG PO ONE (21:53)
[2018-03-14 22:43] VITALS: BP 161/99
== END 2018-03-14 22:42 | disposition home or self-care (01) ==
LOC: ED 17:57
DX: I16.9 Hypertensive crisis, unspecified (principal); R00.0 Tachycardia, unspecified; Z88.0 Allergy status to penicillin; Z88.2 Allergy status to sulfonamides; Z82.49 Family history of ischemic heart disease and other diseases of the circulatory system
CPT/HCPCS: 36415; 70450; 71045; 71275; 80053; 80307; 80320; 81003; 82550; 82553; 83605; 83735; 84443; 84484; 84702; 85025; 85379; 85610; 85730; 93005; 96361; 96374; 96375; 99282; G0480; J0153; J2270; J2405; J3490; Q9967

== ENCOUNTER 2018-10-17 07:22 | Emergency (ER) | payer OTHER ==
--- OUTSIDE RECORDS SUMMARY | 2018-10-17 07:29 | XMS REPORT | Continuity of Care Document ---
:[address] [facility] Care Team Providers Name Role Phone TAMIR FRAUSTO Admitting Physician TAMIR FRAUSTO Attending Physician UNKNOWN, UNKNOWN Primary Care Physician Unavailable Allergies and Intolerances Code Code Allergy Type Reaction Severity Start End Date Status System Substance Date 7986 RXNorm Penicillins Drug Unknown Active allergy (disorder) 755844 RXNorm Bactrim Drug HIVES Unknown Active allergy (disorder) Medications RxNorm Medication Dose Route Instructions Start Date End Date Status Acetaminophen 325 mg, 2 oral orally every 6 Active tabs hours as needed. Plus 27 1 tab oral orally every day Active mg-1 mg Problems Code Code System Problem Name Start Date End Date Status 4229318 SNOMED-CT Second degree perineal 02/17/2011 05:00 Active laceration 36753588 SNOMED-CT Cord entanglement without 02/16/2011 05:00 Active compression 98015895 SNOMED-CT Delivery normal U Active Procedures No data in the system Results Laboratory Results Order: URINALYSIS ROUTINE Specimen Source : Body Site: Legend: (G,H)=High, (GG,HH,CH,#H)=Above High Threshold, (#,L)=Low, (##,CL,#L,LL)=Below Low Threshold, (C,CC,CA,#A,A)=Abnormal LOINC Test Result Flag Range Units Date 5778-6 1Color Ur YELLOW 09/18/2018 16:13 58338-2 1Turbidity Ur Ql CLEAR CLEAR 09/18/2018 16:13 5811-5 1Sp Gr Ur Strip 1.005 1.000-1.030 09/18/2018 16:13 5803-2 1pH Ur Strip 7.0 5.0-8.0 09/18/2018 16:13 24316-7 1WBC # Ur Strip NEGATIVE NEGATIVE 09/18/2018 16:13 5802-4 1Nitrite Ur Ql Strip NEGATIVE NEGATIVE 09/18/2018 16:13 5804-0 1Prot Ur Strip-mCnc NEGATIVE NEGATIVE mg/dL 09/18/2018 16:13 5792-7 1Glucose Ur Strip-mCnc NORMAL NORMAL mg/dL 09/18/2018 16:13 5797-6 1Ketones Ur Strip-mCnc NEGATIVE NEGATIVE mg/dL 09/18/2018 16:13 22974-6 1Urobilinogen Ur NORMAL NORMAL mg/dL 09/18/2018 16:13 Strip-mCnc 80046-9 1Bilirub Ur Strip-mCnc NEGATIVE NEGATIVE mg/dL 09/18/2018 16:13 5794-3 1Hgb Ur Ql Strip NEGATIVE NEGATIVE 09/18/2018 16:13 Performing Lab Footnotes:[facility] - [id number] - [address] [place] [address] RUIZ Higgins [id number] Order: VAGINAL PANEL, PCR Specimen Source: Swab Body Site: Vagina Legend: (G,H)=High, (GG,HH,CH,#H)=Above High Threshold, (#,L)=Low, (##,CL,#L,LL) =Below Low Threshold, (C,CC,CA,#A,A)=Abnormal LOINC Test Result Flag Range Units Date 1BACTERIAL VAGINOSIS NEGATIVE NEGATIVE 09/18/2018 16:11 1CANDIDA SPECIES NEGATIVE NEGATIVE 09/18/2018 16:11 Interpretive Nelly: 1Candida species includes Nabila albicans and/or Nabila tropicalis and/or Nabila parapsilosis and/or Nabila dubliniensis. 1CANDIDA KRUSEI NEGATIVE NEGATIVE 09/18/2018 16:11 1CANDIDA GLABRATA NEGATIVE NEGATIVE 09/18/2018 16:11 1TRICHOMONAS NEGATIVE NEGATIVE 09/18/2018 16:11 Interpretive Nelly: 1Methodology: Polymerase Chain Reaction (PCR) Performing Lab Footnotes:[facility] - [id number] [place] [address] RUIZ [id number] Microbiology Results w Susceptibilities Order: CULTURE URINE Specimen Source: Urine Body Site: Urine specimen collection, clean catchCultural Observations:Growth not [id number] Lab Footnotes:[facility] - [id number] - [address] [place] [address] RUIZ WEIOMD1 Pathology Results Order:PATHOLOGY CYTOLOGY HISTOLCollected Date: 09/18/2018 12:00:00 AM HISTORY: Z01.419. LAST PAP SMEAR-05/02/17-BENIGN CELLULAR CHANGES/YEAST. ORAL CONTRACEPTIVE. SCREENING. SPECIMEN DESCRIPTION: SUREPATH PAP SCREENING, CERVICAL ENDOCERVICAL SPECIMEN ADEQUACY SATISFACTORY ENDOCERVICAL CELLS PRESENT. GENERAL CATEGORIZATION: NEGATIVE FOR INTRAEPITHELIAL LESION OR MALIGNANCY DESCRIPTIVE DIAGNOSIS: NEGATIVE FOR INTRAEPITHELIAL LESION OR MALIGNANCY. 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 Supporting Document Name Address Phone No Directive Type 10/09/2011 4:04:45 Not Specified Not Specified Not Specified None No specified PM PT STATES NO ADVANCE DIRECTIVES Directive Type Effective Date 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
--- OUTSIDE RECORDS SUMMARY | 2018-10-17 07:29 | XMS REPORT | Continuity of Care Document ---
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 are expressed as a ratio to creatinine excretion (mg/g [employer]ATOR). HIAA mass per day (mg/d) is not reported if urine collection is random or other than 24 hours, or if urine volume less than 400 mL/d. No reference interval is available for results reported in units of mg/L. Increased urine 5-HIAA concentration is common and may be the result of improper specimen collection, consumption of serotonin containing foods or dietary supplements, drug interference, or malabsorption syndromes. Significant elevation (ten times the upper reference limit) of urine 5-HIAA may indicate the presence of a carcinoid tumor. Test developed and characteristics determined by [facility]. See Compliance Statement B: [facility]/CS Performed by [facility], [address] [place] [place] [address] www.[email or web address], Emre Lawrence MD, Lab. Director 21 Unit: mg/dL 22 Unit: mg/d 23 Unit: mg/gCR 24 Unless otherwise specified, testing performed by [facility] [place] [address] 25 Unless otherwise specified, testing performed by [facility] [place] [address] 26 Reference range: 0.00 to 0.89 27 Reference range: 0.00 to 0.49 28 See Note INTERPRETIVE INFORMATION: Metanephrines, Plasma (Free) This test is useful in the detection of pheochromocytoma, a rare neuroendocrine tumor. The majority of patients with pheochromocytoma have a plasma normetanephrine concentration in excess of 2.2 nmol/L and/or a metanephrine concentration in excess of 1.1 nmol/L. Increased concentrations of these analytes serve as confirmation for diagnosis. Patients with essential hypertension and plasma concentrations of normetanephrine below 0.9 nmol/L and a metanephrine concentration below 0.5 nmol/L, can be excluded from further testing. If clinical suspicion remains, repeat testing or testing for metanephrines in a 24-hr. urine specimen should be considered. See Compliance Statement B: [email or web address] Performed by [facility], [address] [facility] [address] www.[email or web address], Emre Lawrence MD, Lab. Director Unless otherwise specified, testing performed by [facility] [place] [address] 29 Updated reference range on new analyzer 30 Updated reference range on new analyzer 31 Concerning GFR Guidelines for Americans: Normal function or mild renal disease, if clinically at risk: >/=60 mL/min Moderately decreased: 30-59 Severely decreased: 15-29 Renal failure: <15 32 Concerning GFR Guidelines: Normal function or mild [...] drugs that are excreted by the kidneys. 33 Updated Reference Range 34 Interpretation: 0-25 Negative 26-35 Equivocal >35 Positive 35 Interpretation: 0-40 Negative 41-60 Equivocal >60 Positive 36 Microbiology results SOURCE Clean Catch Midstream FINAL RESULT No growth 37 Clinical Guidelines for recommended serum 25(OH)Vitamin D Deficient at less than 20 ng/mL Insufficient at 20 to <30 ng/mL Sufficient at 30-100 ng/mL Toxicity at greater than 100 ng/mL 38 Updated reference range on new analyzer 39 Updated reference range on new analyzer 40 Concerning GFR Guidelines for Americans: Normal function or mild renal disease, if clinically at risk: >/=60 mL/min Moderately decreased: 30-59 Severely decreased: 15-29 Renal failure: <15 41 Concerning GFR Guidelines: Normal function or mild [...] drugs that are excreted by the kidneys. 42 Updated Reference Range 43 < 1:16 Reference range: < 1:16 INTERPRETIVE INFORMATION: Babesia microti Antibody, IgG Less than 1:16 ........ Negative - No significant level of detectable Babesia IgG antibodies. 1:16 .................. Equivocal - Repeat testing in 10-14 days may be helpful. Greater than 1:16 ..... Positive - IgG antibodies to Babesia detected which may indicate a current or previous infection. Test developed and characteristics determined by [facility]. See Compliance Statement A: [facility]/Phorm 44 <1:20 Reference range: <1:20 INTERPRETIVE INFORMATION: Babesia microti Antibody, IgM Less than 1:20 ........ Negative - No significant level of detectable Babesia IgM antibodies. 1:20 .................. Equivocal - Repeat testing in 10-14 days may be helpful. Greater than 1:20 ..... Positive - IgM antibodies to Babesia detected which may indicate a current or recent infection. Test developed and characteristics determined by [facility]. See Compliance Statement A: [email or web address] Performed by [facility], [address] [place] [id number] www.[email or web address], Emre Lawrence MD, Lab. Director Unless otherwise specified, testing performed by [facility] [address] [place] [id number] 45 <1:64 Reference range: <1:64 INTERPRETIVE INFORMATION: Ehrlichia [...] time. Test developed and characteristics determined by [facility]. See Compliance Statement B: [facility]/Phorm 46 < 1:16 Reference range: < 1:16 INTERPRETIVE [...] caution. Test developed and characteristics determined by [facility]. See Compliance Statement B: [facility]/Phorm Performed by [facility], [address] [place] [id number] www.[email or web address], Emre Lawrence MD, Lab. Director Unless otherwise specified, testing performed [place] [address] 47 May indicate a current or previous infection. 48 May indicate a current or previous infection. Unless otherwise specified, testing performed [place] [address] 49 A Negative serologic test for Lyme Disease indicates no serologic evidence of infection with B burgdorferi at the time this specimen was collected. A repeat specimen should be collected in 2 to 4 weeks if clinically indicated. Unless otherwise specified, testing performed [place] [address] 50 Updated reference range on new analyzer 51 Updated reference range on new analyzer 52 Concerning GFR Guidelines for Americans: Normal function or mild renal disease, if clinically at risk: >/=60 mL/min Moderately decreased: 30-59 Severely decreased: 15-29 Renal failure: <15 53 Concerning GFR Guidelines: Normal function or mild [...] drugs that are excreted by the kidneys. 54 Updated Reference Range 55 Unless otherwise specified, testing performed by [facility] [place] [address] 56 Reference range: 0 to 19 Unit: Units [...] be monitored and testing repeated. Performed by [facility], [address] [place] [id number] www.[facility], Joe Lopez MD, Lab. Director Unless otherwise specified, testing performed by [facility] [place] [address] 57 Concerning GFR Guidelines for Americans: Normal function or mild renal disease, if clinically at risk: >/=60 mL/min Moderately decreased: 30-59 Severely decreased: 15-29 Renal failure: <15 58 Concerning GFR Guidelines: Normal function or mild [...] drugs that are excreted by the kidneys. 59 Microbiology results SOURCE MIDU FINAL RESULT No growth 60 Unless otherwise specified, testing performed by [facility] [place] [address] 61 Unless otherwise specified, testing performed by [facility] [address] [place] [address] 62 May indicate a current or previous infection. Unless otherwise specified, testing performed by [facility] [address] [place] [address] 63 May indicate a current or previous infection. Unless otherwise specified, testing performed by [facility] [address] [place] [id number] 64 Unless otherwise specified, testing performed by [facility] [address] [place] [address] 65 Unless otherwise specified, testing performed by [facility] [address] [place] [id number] 66 INTERPRETATION OF RESULTS: < 20 UNITS NEGATIVE 20-30 UNITS WEAK POSITIVE > 30 UNITS MODERATE TO STRONG POSITIVE The following result was obtained with the Prom[employer]e Gliadin IgA II. Results obtained with other manufacturers' assay methods may not be used interchangeably. The magnitude of the reported IgA level cannot be correlated to an endpoint titer. 67 INTERPRETATION OF RESULTS: < 20 UNITS NEGATIVE 20-30 UNITS WEAK POSITIVE > 30 UNITS MODERATE TO STRONG POSITIVE The following result was obtained with the [employer] Gliadin IgG II. Results obtained with other manufacturers' assay methods may not be used interchangeably. The magnitude of the reported IgG levels cannot be correlated to an endpoint titer. 68 INTERPRETATION OF RESULTS: < 20 UNITS NEGATIVE 20-30 UNITS WEAK POSITIVE > 30 UNITS MODERATE TO STRONG POSITIVE The following result was obtained with the [employer] Yippee Artse h-tTG IgA KRANTHI. Results obtained with other manufacturers' assay methods may not be used interchangeably. The magnitude of the reported IgA level cannot be correlated to an endpoint titer. Performed at [address] [place] [address] 69 INTERPRETATION OF RESULTS: < 20 UNITS NEGATIVE 20-30 UNITS WEAK POSITIVE > 30 UNITS MODERATE TO STRONG POSITIVE The following result was obtained with the [employer] QUANTA Lite h-tTG IgG KRANTHI. Results obtained with other manufacturers' assay methods may not be used interchangeably. The magnitude of the reported IgG levels cannot be correlated to an endpoint titer. Performed at [address] [place] [address] Unless otherwise specified, testing performed by [facility] [address] [place] [id number] 70 A Negative serologic test for Lyme Disease indicates no serologic evidence of infection with B burgdorferi at the time this specimen was collected. A repeat specimen should be collected in 2 to 4 weeks if clinically indicated. Unless otherwise specified, testing performed by [facility] [address] [place] [id number] 71 Unless otherwise specified, testing performed by [facility] [address] [place] [id number] 72 4.6 Specimen Slightly Hemolyzed 73 Concerning GFR Guidelines for Americans: Normal function or mild renal disease, if clinically at risk: >/=60 mL/min Moderately decreased: 30-59 Severely decreased: 15-29 Renal failure: <15 74 Concerning GFR Guidelines: Normal function or mild [...] drugs that are excreted by the kidneys. 75 Microbiology results SOURCE MIDU FINAL RESULT No growth 76 This sample is drawn by:CT 77 Concerning GFR Guidelines for Americans: Normal function or mild renal disease, if clinically at risk: >/=60 mL/min Moderately decreased: 30-59 Severely decreased: 15-29 Renal failure: <15 78 Concerning GFR Guidelines: Normal function or mild [...] the kidneys. Procedures Date Code Description Status 08/05/2018 26697 Airway Inhalation Treatment Completed 03/26/2018 11433 Needle Electromyography, Two Extremities Completed 03/13/2018 79653 Electrocardiogram Complete Completed 07/03/2017 82298 Physical Therapy Eval Completed 07/03/2017 96153 Nerve Conduction 7-8 Studies Completed 07/03/2017 46965 Needle Electromyography Complete, Five Or More Muscles Completed Studied Encounters Type Date Location Provider Dx Diagnosis Office Visit 10/07/2018 3:00p Kain Armstrong PA N39.0 Urinary tract infection, site not specified J02.0 Streptococcal pharyngitis J02.9 Acute pharyngitis, unspecified Z68.26 Body mass index (BMI) 26.0-26.9, adult Office Visit 08/05/2018 10:20a Dorothea Melgar, RN [employer] R05 Cough Z68.28 Body mass index (BMI) 28.0-28.9, adult Office Visit 07/22/2018 10:20a Dorothea Melgar, J02.9 Acute pharyngitis, RN [employer] unspecified Office Visit 04/01/2018 2:00p Kain Armstrong PA R23.2 Flushing R00.0 Tachycardia, unspecified R00.2 Palpitations R35.8 Other polyuria G44.89 Other headache syndrome E03.9 Hypothyroidism, unspecified F33.1 Major depressive disorder, recurrent, moderate Z68.27 Body mass index (BMI) 27.0-27.9, adult Office Visit 03/17/2018 2:00p Kain Armstrong PA R00.0 Tachycardia, unspecified R23.2 Flushing R00.2 Palpitations J01.90 Acute sinusitis, unspecified E03.9 Hypothyroidism, unspecified Z68.26 Body mass index (BMI) 26.0-26.9, adult Office Visit 03/13/2018 11:00a Kain rAmstrong PA J01.90 Acute sinusitis, unspecified E03.9 Hypothyroidism, unspecified G44.89 Other headache syndrome G47.00 Insomnia, unspecified F33.1 Major depressive disorder, recurrent, moderate R00.0 Tachycardia, unspecified R00.2 Palpitations Z68.27 Body mass index (BMI) 27.0-27.9, adult Office Visit 2018 1:00p Kain Armstrong PA [...] Visit 06/26/2017 11:00a Dorothea Melgar, RN [employer] M54.2 Cervicalgia M25.511 Pain in RIGHT shoulder M25.512 Pain in LEFT shoulder N76.0 Acute vaginitis R23.9 Unspecified skin changes M25.531 Pain in RIGHT wrist R20.2 Paresthesia of skin Z68.28 Body mass index (BMI) 28.0-28.9, adult Office Visit 03/13/2017 1:40p Dorothea Melgar, J01.00 Acute maxillary RN [employer] sinusitis, unspecified R07.9 Chest pain, unspecified Z68.29 [...] Dorothea Melgar, J01.90 Acute sinusitis, RN [employer] unspecified Office Visit 05/19/2015 10:00a Dorothea Melgar, R35.0 Frequency of RN [employer] micturition K64.8 Other hemorrhoids N76.0 Acute vaginitis J30.9 Allergic rhinitis, unspecified F33.0 Major depressive disorder, recurrent, mild Office Visit 04/13/2015 3:30p Dorothea Melgar, J01.00 Acute maxillary RN [employer] sinusitis, unspecified Office Visit 11/17/2014 10:20a Christina [...] Melgar, 789.9 Abdomen & Pelvis RN [employer] Symptoms Other Office Visit 05/18/2013 8:20a Christina Bass MD 346.10 Migraine Common W/O Intractable 311 Depressive Disorder Not Elsewhere Spec Office Visit 04/09/2013 9:40a Dorothea Melgar, 346.10 Migraine Common W/O RN [employer] Intractable 780.79 Malaise And Fatigue Other 300.02 Anxiety Disorder Generalized 311 Depressive Disorder Not Elsewhere Spec Office Visit 01/29/2013 10:00a Dorothea Melgar, RN [employer] 626.6 Metrorrhagia 524.64 TMJ Sounds Open/Close Jaw 300.02 Anxiety Disorder Generalized Office Visit 12/25/2012 10:40a Dorothea Melgar, 524.64 TMJ Sounds Open/Close RN [employer] Jaw 784.0 Headache 300.02 Anxiety Disorder Generalized [...] Disorder Not Elsewhere Spec Plan of Treatment 10/07/2018 - Kain Delgado, RAHEL39.0 Urinary tract infection, site not specifiedNew Medication:Cephalexin 500 mg - 1 by mouth 3 times a day for 7daysComments:treat with keflex.J02.0 Streptococcal pharyngitisComments:will treat with Abx with exposure to son.J02.9 Acute pharyngitis, gwbdarjebluC79.26 Body mass index (BMI) 26.0-26.9, adult
--- OUTSIDE RECORDS SUMMARY | 2018-10-17 07:29 | XMS REPORT | Continuity of Care Document ---
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 1.000-1.030 Dipstick Urine pH 8.0 5.0-8.0 Dipstick Urine Leucoesterase NEGATIVE Negative Dipstick Urine Nitrate NEGATIVE Negative Dipstick Urine Protein NEGATIVE mg/dL Negative Dipstick Urine Glucose NORMAL mg/dL Normal Dipstick Urine Ketone NEGATIVE mg/dL Negative Dipstick Urine Urobilinogen NORMAL mg/dL Normal Dipstick Urine Bili NEGATIVE mg/dL Negative Dipstick Urine Hgb NEGATIVE Negative Culture Urine 07/12/2010 [facility] Out Patient Lab Culture Observations Growth not 80 [phone] obtai <SEE NOTE> Culture Observations MRSA screen test <SEE NOTE> 81 Utoxrt 07/12/2010 [facility] Out Patient Lab Amphetamines,Urine NEGATIVE [id number] (Neg) [phone] Barbituates,Urine NEGATIVE [id number] (Neg) Benzodiazepine,Urine NEGATIVE [id number] (Neg) Cannabinoids,Urine NEGATIVE [id number] (Neg) Cocaine,Urine NEGATIVE [id number] (Neg) Opiates,Urine NEGATIVE [id number] (Neg) Phencyclidine,Urine NEGATIVE [id number] (Neg) Please Note: THESE ARE SCREEN <SEE NOTE> 82 Chlamydia-GC 07/12/2010 [facility] Out Patient Lab Neisseria NEGATIVE FOR 83 Antigen [phone] Gonorrhoeae NEI <SEE Antigen Test NOTE> Chlamydia Trachomatis Antigen NEGATIVE FOR CHL <SEE NOTE> 84 Gcchlam Methodology Methodology: DNA <SEE NOTE> 85 1 Normal Kidney Function or Mild Disease - GFR >OR=60 Chronic Kidney Disease - GFR 15-59 Renal Failure - GFR < 15 GFR not calculated on patients under 18 years of age. 2 CORRECTED RESULT - Previously reported as: 262 On 06/08/2018 11:05 By 15 3 This test was developed and its performance characteristics determined by [facility]. It has not been cleared or approved by the Food and Drug Administration. 4 This test was developed and its performance characteristics determined by [facility]. It has not been cleared or approved by the Food and Drug Administration. . Concentrations of Normetanephrine between 146 and 487 pg/mL, and Metanephrine between 63 and 255 pg/mL are considered indeterminate. Follow-up biochemical testing is recommended when patient levels fall within this indeterminate range. These tests include repeat testing of plasma/urinary fractionated metanephrines and plasma catecholamines. 5 Methodology: DNA Probe 6 Methodology: DNA Probe 7 A streptococcal isolate that is susceptible to penicillin can be considered susceptible to ampicillin, amoxicillin, amoxicillin/clavulanic acid, cefaclor , cefazolin, cefepime, ceprozil, ceftriaxone, cefpodoxime, ceftizoxime and imipenem for approved indications. 8 <3,000 col/mL Streptococcus agalactiae (Group B) 9 Methodology: DNA Probe 10 Endocervical Swab 11 A negative result does not rule out Chlamydia trachomatis infection because results are dependent on adequate specimen collection, absence of inhibitors, and sufficient DNA to be detected. 12 A negative result does not rule out Neisseria gonorrhoeae infection because results are dependent on adequate specimen collection, absence of inhibitors, and sufficient DNA to be detected. 13 Methodology: Strand Displacement Amplification 14 Methodology: DNA Probe 15 Methodology: DNA Probe 16 Methodology: DNA Probe 17 Endocervical Swab 18 A negative result does not rule out Chlamydia trachomatis infection because results are dependent on adequate specimen collection, absence of inhibitors, and sufficient DNA to be detected. 19 A negative result does not rule out Neisseria gonorrhoeae infection because results are dependent on adequate specimen collection, absence of inhibitors, and sufficient DNA to be detected. 20 Methodology: Strand Displacement Amplification 21 Methodology: DNA Probe 22 Endocervical Swab 23 A negative result does not rule out Chlamydia trachomatis infection because results are dependent on adequate specimen collection, absence of inhibitors, and sufficient DNA to be detected. 24 A negative result does not rule out Neisseria gonorrhoeae infection because results are dependent on adequate specimen collection, absence of inhibitors, and sufficient DNA to be detected. 25 Methodology: Strand Displacement Amplification 26 NEGATIVE FOR TRICHOMONAS VAGINALIS ANTIGEN 27 POSITIVE FOR GARDNERELLA VAGINALIS ANTIGEN 28 NEGATIVE FOR NABILA SPECIES ANTIGEN 29 Methodology: DNA Probe 30 Rare colonies of Mixed growth consistent with vaginal addie present 31 MRSA screen test negative 32 URINE MICROSCOPIC EXAM 33 The [place] [employer] has defined Microscopic Hematuria as 3 or more RBC per high powered field from 2 of 3 urine specimens. 34 Streptococcus agalactiae (Group B) was NOT isolated 35 NEGATIVE FOR TRICHOMONAS VAGINALIS ANTIGEN 36 NEGATIVE FOR GARDNERELLA VAGINALIS ANTIGEN 37 NEGATIVE FOR NABILA SPECIES ANTIGEN 38 Methodology: DNA Probe 39 NEGATIVE FOR TRICHOMONAS VAGINALIS ANTIGEN 40 NEGATIVE FOR GARDNERELLA VAGINALIS ANTIGEN 41 NEGATIVE FOR NABILA SPECIES ANTIGEN 42 Methodology: DNA Probe 43 NEGATIVE FOR NEISSERIA GONORRHOEAE ANTIGEN 44 NEGATIVE FOR CHLAMYDIA TRACHOMATIS ANTIGEN A negative chlamydia test result does not exclude infection because results are affected by improper specimen collection. Specimen must contain cells from the endocervical canal, male urethra or conjun tiva. Chlamydiae are not found in squamous epithelial cells. 45 Methodology: DNA Probe 46 Growth not obtained 47 MRSA screen test negative 48 NEGATIVE FOR TRICHOMONAS VAGINALIS ANTIGEN 49 NEGATIVE FOR GARDNERELLA VAGINALIS ANTIGEN 50 POSITIVE FOR NABILA SPECIES ANTIGEN 51 Methodology: DNA Probe 52 NEGATIVE FOR NEISSERIA GONORRHOEAE ANTIGEN 53 NEGATIVE FOR CHLAMYDIA TRACHOMATIS ANTIGEN A negative chlamydia test result does not exclude infection because results are affected by improper specimen collection. Specimen must contain cells from the endocervical canal, male urethra or conjun tiva. Chlamydiae are not found in squamous epithelial cells. 54 Methodology: DNA Probe 55 Few colonies of Mixed growth consistent with vaginal addie present 56 MRSA screen test negative 57 Growth not obtained 58 MRSA screen test negative 59 NEGATIVE FOR TRICHOMONAS VAGINALIS ANTIGEN 60 NEGATIVE FOR GARDNERELLA VAGINALIS ANTIGEN 61 POSITIVE FOR NABILA SPECIES ANTIGEN 62 Methodology: DNA Probe 63 NEGATIVE FOR NEISSERIA GONORRHOEAE ANTIGEN 64 NEGATIVE FOR CHLAMYDIA TRACHOMATIS ANTIGEN A negative chlamydia test result does not exclude infection because results are affected by improper specimen collection. Specimen must contain cells from the endocervical canal, male urethra or conjun tiva. Chlamydiae are not found in squamous epithelial cells. 65 Methodology: DNA Probe 66 NEGATIVE FOR TRICHOMONAS VAGINALIS ANTIGEN 67 NEGATIVE FOR GARDNERELLA VAGINALIS ANTIGEN 68 NEGATIVE FOR NABILA SPECIES ANTIGEN 69 Methodology: DNA Probe 70 Growth not obtained 71 MRSA screen test negative 72 INTERPRETATION OF RESULT: ADULT RANGE ACQUIRED PROTEIN S DEFICIENCY MAY BE CAUSED BY INFLAMMATORY STATES, HEPATIC DISORDERS, WARFARIN, , ORAL CONTRACEPTIVES, AND L-ASPARAGINASE. ELEVATED FACTOR VIII (200%), DIRECT THROMBIN INHIBITORS, AND PRESENCE OF LUPUS ANTICOAGULANT MAY LEAD TO OVERESTIMATION OF PROTEIN S. DETERMINATION OF ANTIGENETIC FREE PROTEIN S LEVEL MAY BE USEFUL IN NON-CORRELATIVE CASES. 73 THIS INFORMATION HAS BEEN DISCLOSED TO YOU FROM CONFIDENTIAL RECORDS WHICH ARE PROTECTED BY STATE LAW. STATE LAW PROHIBITS YOU FROM MAKING ANY FURTHER DISCLOSURE OF THIS INFORMATION WITHOUT THE SPECIFIC WRITTEN CONSENT OF THE PERSON TO WHOM IT PERTAINS, OR OTHERWISE PERMITTED BY LAW. 74 Methodology: Nontreponemal Flocculation Test 75 < 5.0 NON IMMUNE 5.0 - 9.9 INDETERMINANT > 9.9 IMMUNE 76 NEGATIVE FOR TRICHOMONAS VAGINALIS ANTIGEN 77 NEGATIVE FOR GARDNERELLA VAGINALIS ANTIGEN 78 POSITIVE FOR NABILA SPECIES ANTIGEN 79 Methodology: DNA Probe 80 Growth not obtained 81 MRSA screen test negative 82 THESE ARE SCREENING IMMUNOASSAY TESTS THAT ARE REPORTED POSITIVE WHEN THE RESULTS EXCEED THE THRESHOLD (CUTOFF) INDICATED. A LIST OF POTENTIAL INTERFERENCES FOR EACH METHOD CAN BE MADE AVAILABLE UPON REQUEST. A CONFIRMATORY ANALYSIS IS ORDERED ON ALL DRUGS SCREENING POSITIVE BY THIS METHOD. PERFORMED AT [address] [place] [address] 83 NEGATIVE FOR NEISSERIA GONORRHOEAE ANTIGEN 84 NEGATIVE FOR CHLAMYDIA TRACHOMATIS ANTIGEN A negative chlamydia test result does not exclude infection because results are affected by improper specimen collection. Specimen must contain cells from the endocervical canal, male urethra or conjun tiva. Chlamydiae are not found in squamous epithelial cells. 85 Methodology: DNA Probe Procedures Date Code Description Status 12/09/2014 14498 Ultrasound Transvaginal Completed 12/15/2013 82231 Ultrasound Transvaginal Completed 11/17/2013 11766 Ultrasound Transvaginal Completed 04/06/2013 10005 Ultrasound Transvaginal Completed 02/17/2011 69535 Vaginal Delivery,Antepartum And Care Completed 02/11/2011 78400 Non-Stress Test Completed 01/28/2011 84325 Non-Stress Test Completed 11/29/2010 78246 Therapeutic/Prophylactic/Diagnostic Inj(Subcu/Im) (Specify Completed Drug) 10/03/2010 24523 Ultrasound Uterus,Real Time W.Image Documentation,After Completed 1St 07/25/2010 31591 Therapeutic/Prophylactic/Diagnostic Inj(Subcu/Im) (Specify Completed Drug) 07/25/2010 08236 Ultrasound, Uterus, Real Time W/Image Completed Documentation, Encounters Type Date Location Provider Dx Diagnosis Office Visit 07/28/2018 1:30p [facility] Arias Burnett MD R05 Cough Sleep Medicine G47.30 Sleep apnea, unspecified R00.2 Palpitations Office Visit 06/08/2018 8:15a [facility] Bharat Banegas R00.2 Palpitations Diabetes & MD [facility] R35.8 Other polyuria Office Visit 05/02/2017 11:30a [facility] Guerrero Z01.419 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 And 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 Heaven, CNM exam (general) Ups (routine) w/o abn findings N76.1 Subacute and chronic vaginitis Office Visit 04/18/2016 11:15a [facility] Chelle Lopez, Z01.419 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 And 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 CNM exam (general) Ups (routine) w/o abn findings Office Visit 12/09/2014 1:00p [facility] Chelle Lopez, N76.0 Acute vaginitis And Gynecology CNM Ups R10.31 Right lower quadrant pain Office Visit 11/16/2014 11:15a [facility] Chelle Lopez V72.41 Test And Gynecology Ups CNM Negative V72.31 Routine Lighter Captain Examination 789.9 Abdomen & Pelvis Symptoms Other Office Visit 02/14/2014 9:45a [facility] Chelle V25.09 Contraceptive And Gynecology John, CNM Management Other Ups Office Visit 12/15/2013 11:45a [facility] Chelle 625.9 Female Genital And Gynecology John, CNM Organs Unspec Ups Symptoms Office Visit 11/17/2013 3:30p [facility] Chelle 625.9 Female Genital And Gynecology John, CNM Organs Unspec Symptoms 789.03 Pain Abdominal Right Lower Quadrant Office Visit 10/27/2013 1:15p [facility] Chelle Lopez, 789.03 Pain Abdominal And Gynecology CNM Right Lower Quadrant V25.09 Contraceptive Management Other V72.31 Routine Lighter Captain Examination 616.11 Vaginitis & Vulvovaginitis In Diseases Class Elsewhere Office Visit 04/06/2013 1:45p [facility] Markus Tinoco, 620.2 Ovarian Cyst And Gynecology Other & Unspec V25.09 Contraceptive Management Other Office Visit 03/09/2013 10:15a [facility] Markus v72.41 Test And Gynecology MD Alejandrina Negative 626.4 Irregular Menstrual Cycle 620.2 Ovarian Cyst Other & Unspec 789.03 Pain Abdominal Right Lower Quadrant Office Visit 02/16/2013 11:30a [facility] Chelle Lopez V72.41 Test And Gynecology CNM Negative V25.09 Contraceptive Management Other Office Visit 10/16/2012 8:15a [facility] Chelle Lopez V72.31 Routine Lighter Captain And Gynecology CNM Examination Office Visit 10/02/2011 11:00a [facility] Marlene V72.41 Test And Gynecology DEE Walsh Negative V72.31 Routine Lighter Captain Examination V25.41 Contraceptive Pill Surveillance Office Visit 02/28/2011 N[facility] Rosario 599.0 UTI Urinary Tract 1:15p Obstetrics And DEE Walsh Infection Site Not Gynecology Spec Office Visit 02/11/2011 Nadeen Rosario 644.13 Labor Threatened 10:02p Obstetrics Vincent Walsh CNM Other Antepartum Gynecology Cond Or Compl Office Visit 01/09/2011 N[facility] Guerrero 616.10 Vaginitis & 2:00p Obstetrics Vincent Collado CNM Vulvovaginitis Gynecology Unspec 644.00 Premature Labor Threatened Episode Of Care Unspec Or N/A Office Visit 11/02/2010 1:45p Nadeensarita Rosario 644.03 Premature Labor And Gynecology DEE Walsh Threatened Antepartum Cond Or Compl Office Visit 10/10/2010 9:45a [facility] Rosario 599.0 UTI Urinary And Gynecology DEE Walsh Tract Infection Site Not Spec 311 Depressive Disorder Not Elsewhere Spec Office Visit 07/25/2010 Nadeen Aparicio 640.03 9:15a Obstetrics And MD Alejandrina Threatened Gynecology Antepartum Condition Or Complication Plan of Treatment 09/18/2018 - Teresita Collado CNMZ01.419 Encounter for gynecological examination (general) (routine)N76.0 Acute alzeoridfP67.0 Frequency of qhwtzfbuobqF55.09 Encounter for other general counseling and advice on contracComments:normal blow molding machine tender exam, pt requesting BTL, will sign consent today, after appt, pt stated has had urinary frequency for 1 week, will check urine C& amp;S. vaginitis panel pending. will treat according to results. continue ocp til BTLRTO to discuss BTL with
[2018-10-17] MEDS ORDERED: predniSONE TAB* 20 MG PO ONE ×2 (08:03→08:12)
--- NOTE | 2018-10-17 08:03 | UC ---
Allergic Reaction HPI - HPI Summary HPI Summary: Overnight patient developed a diffuse rash on her legs chest and back. Or small slightly raised patches about a centimeter in diameter. They do diane. She does feel well no shortness of breath no difficulty swallowing. She is just finishing seven-day course of Keflex for strep throat. She has some cat scratches on the left upper thigh in the right forearm which is where the erythema and rash started yesterday. - History of Current Complaint Chief Complaint: UCRash Stated Complaint: ALLERGIC REACTION Time Seen by Provider: 10/17/18 07:47 Hx Last Menstrual Period: 09/22/18 Pain Intensity: 0 - Allergies/Home Medications Allergies/Adverse Reactions: Allergies Allergy/AdvReac Type Severity Reaction Status Date / Time Penicillins Allergy Unknown Verified 10/17/18 07:36 Reaction Details sulfamethoxazole Allergy Hives Verified 10/17/18 07:36 [From Bactrim] trimethoprim [From Bactrim] Allergy Hives Verified 10/17/18 07:36 SEASONAL Allergy Itching Uncoded 03/14/18 18:28 EYES/SNEEZING PMH/Surg Hx/FS Hx/Imm Hx Previously Healthy: Yes - Surgical History Surgical History: Yes Surgery Procedure, Year, and Place: tonsils;. APPENDECTOMY. cleft palate - Family History Known Family History: Positive: Cardiac Disease - father [place], paternal grandfather with cardiac disease Negative: Seizure Disorder - Social History Alcohol Use: Rare Substance Use Type: None Smoking Status (MU): Never Smoked Tobacco Have You Smoked in the Last Year: No Review of Systems All Other Systems Reviewed And Are Negative: Yes Constitutional: Positive: Negative Skin: Positive: Other - SEE HPI Eyes: Positive: Negative ENT: Positive: Other - SEE HPI Respiratory: Positive: Negative Cardiovascular: Positive: Negative Gastrointestinal: Positive: Negative Motor: Positive: Negative Neurovascular: Positive: Negative Musculoskeletal: Positive: Negative Neurological: Positive: Negative Psychological: Positive: Negative Is Patient Immunocompromised?: No Physical Exam Triage Information Reviewed: Yes Appearance: Well-Appearing, No Pain Distress, Well-Nourished Vital Signs: Initial Vital Signs Temp 97.9 F 10/17/18 07:28 Pulse 79 10/17/18 07:28 Resp 18 10/17/18 07:28 BP 135/72 10/17/18 07:28 Pulse Ox 100 10/17/18 07:28 Vital Signs Reviewed: Yes Eye Exam: Normal Eyes: Positive: Conjunctiva Clear ENT: Positive: Pharynx normal, Uvula midline. Negative: Muffled voice, Hoarse voice Neck: Positive: Supple Respiratory: Positive: Lungs clear, Normal breath sounds, No respiratory distress Cardiovascular: Positive: RRR Musculoskeletal: Positive: Strength Intact, ROM Intact Neurological: Positive: Alert, Muscle Tone Normal Psychological: Positive: Age Appropriate Behavior Skin: Positive: Other - Patient has cat scratch on her right forearm and left upper thigh that has surrounding blanching erythema. No drainage. She is diffuse erythematous blanching rash that slightly raised and not confluent over legs chest abdomen back and arms. Allergic Reaction Course/Dx - Course Course Of Treatment: In clinic patient received Benadryl 50 mg by mouth Pepcid 40 by mouth and prednisone 60 mg by mouth in clinic after she felt itching in her throat and difficulty clearing her throat. Her throat cleared and her rash started going away she felt improved. Because the erythema was the greatest around the cat scratches I treated with Corey azithromycin for cat scratch. Patient will get reevaluated if worse or any questions or concerns. - Differential Dx/Diagnosis Provider Diagnosis: Allergic reaction, Cat scratch Discharge - Sign-Out/Discharge Documenting (check all that apply): Patient Departure All imaging exams completed and their final reports reviewed: No Studies - Discharge Plan Condition: Stable Disposition: HOME Prescriptions: Azithromyxin EL (NF) [Z-El (Zithromax) 250 mg tabs #6] 2 tab PO .TODAY, THEN 1 DAILY #6 tab Famotidine TAB* [Pepcid 20 MG TAB*] 40 mg PO BID PRN #10 tab PRN Reason: Allergy Symptoms predniSONE TAB* [Deltasone 20 MG TAB*] 40 mg PO DAILY PRN #8 tab PRN Reason: Allergy Symptoms Patient Education Materials: Cat Scratch Disease (ED), General Allergic Reaction (ED) Referrals: Kain Delgado [Primary Care Provider] - Additional Instructions: FOLLOW UP WITH YOUR DOCTOR IF NOT COMPLETELY IMPROVED. GO TO THE EMERGENCY DEPARTMENT IF YOUR CONDITION WORSENS; FEVER, YOU FEEL ILL, DIFFICULTY WITH BREATHING OR SWALLOWING OR ANY QUESTIONS OR CONCERNS. TAKE BENADRYL 50MG EVERY 6 HOURS NEEDED. TAKE PEPCID 20MG TWICE A DAY NEEDED. TAKE THE PREDNISONE DIRECTED NEEDED. - Billing Disposition and Condition Condition: STABLE Disposition: Home
[2018-10-17] MEDS ORDERED: Famotidine TAB* 20 MG PO ONE (08:12)
[2018-10-17] MEDS ORDERED: diPHENhydraMINE PO* 50 MG PO ONE (08:12)
[2018-10-17 09:38] VITALS: BP 130/70
== END 2018-10-17 09:37 | disposition home or self-care (01) ==
LOC: UCEAST 07:22
DX: S50.811A Abrasion of right forearm, initial encounter (principal); W55.03XA Scratched by cat, initial encounter; Y92.9 Unspecified place or not applicable; Z88.0 Allergy status to penicillin; Z88.2 Allergy status to sulfonamides
CPT/HCPCS: 99212; A9270-GY; G0463; J7512

== ENCOUNTER 2018-12-05 17:35 | Emergency (ER) | payer OTHER ==
--- NOTE | 2018-12-05 17:42 | ED ---
HPI Chest Pain - HPI Summary HPI Summary: 33 yo female [place] [facility] [place] with chest pain. She has many complaints at present, most of which have been chronic in nature. Last night she had a sub for dinner consisting of peppers, onions, cheese, and meat. A few hours later she developed generalized abdominal cramping and had 3 episodes of diarrhea and states the food was "not digested". Around midnight she began feeling that her heart was racing, thus took a half tab of her metoprolol. --- She is on metoprolol for rate control due to transient tachycardia and palpitations - she has seen two different cardiologists and had a stress test, holter, and various lab testing. She has also seen an integration assistant as she feels that she is always dehydrated and urinates often - testing for 24 hr urine collection was normal x2 per pt as well as subsequent labwork. -- She woke this morning and still had some generalized abdominal cramping and had another episode of loose stools. She had ecuadorean toast for breakfast and slept all day. Around 1030 she began having left sided chest pain that she describes as a sharp burning. This discomfort is intermittent, random, and lasts less than 30 seconds before spontaneously resolving. She does not have any associated headache, dizziness, SOB, pain with breathing, or vomiting with this. Her chest pain persisted, prompting her to call an ambulance for further evaluation. She was given nitro and ASA 325mg en route and pt reports no change in her symptoms. She is still having intermittent chest pain as described above. She denies fever, chills, recent illness, cough, SOB, vomiting, dysuria, vaginal discharge or bleeding, back pain, headache, dizziness, weakness. No neck pain. She has a family history of CVA, HI, CAD, HTN, HLD, thyroid disease. - History of Current Complaint Time Seen by Provider: 12/05/18 17:41 Hx Obtained From: Patient Hx Last Menstrual Period: 09/22/18 Initial Severity: Moderate Current Severity: Moderate Pain Intensity: 6 Pain Scale Used: 0-10 Numeric - Allergy/Home Medications Allergies/Adverse Reactions: Allergies Allergy/AdvReac Type Severity Reaction Status Date / Time Penicillins Allergy Unknown Verified 12/05/18 17:46 Reaction Details sulfamethoxazole Allergy Hives Verified 12/05/18 17:46 [From Bactrim] trimethoprim [From Bactrim] Allergy Hives Verified 12/05/18 17:46 SEASONAL Allergy Itching Uncoded 03/14/18 18:28 EYES/SNEEZING Home Medications: Home Medications Metoprolol Tartrate TAB* [Lopressor TAB*] 37.5 mg PO DAILY 12/05/18 [History Confirmed 12/05/18] PMH/Surg Hx/FS Hx/Imm Hx Endocrine/Hematology History: Reports: Hx Thyroid Disease Denies: Hx Diabetes Cardiovascular History: Reports: Hx Hypertension Denies: Hx Pacemaker/ICD Respiratory History: Denies: Hx Asthma, Hx Chronic Obstructive Pulmonary Disease (COPD) GI History: Denies: Hx Ulcer History: Reports: Hx Kidney Stones Denies: Hx Renal Disease Sensory History: Denies: Hx Hearing Aid Neurological History: Denies: Hx CVA, Hx Migraine Psychiatric History: Denies: Hx Depression, Hx Panic Disorder - Cancer History Cancer Type, Location and Year: hx of melanoma =lt /rt shoulder/lt lower leg all removed - Surgical History Surgery Procedure, Year, and Place: tonsils;. APPENDECTOMY. cleft palate - Immunization History Date of Tetanus Vaccine: UNKNOWN Date of Influenza Vaccine: NONE Infectious Disease History: Denies: Hx Clostridium Difficile, Hx Hepatitis, Hx Human Immunodeficiency Virus (HIV), Hx of Known/Suspected MRSA, Hx Shingles, Hx Tuberculosis, Hx Known/ Suspected VRE, Hx Known/Suspected VRSA, History Other Infectious Disease - Family History Known Family History: Positive: Cardiac Disease - father HI, paternal grandfather with cardiac disease Negative: Seizure Disorder - Social History Occupation: Employed Full-time Lives: With Family Alcohol Use: Rare Hx Substance Use: No Substance Use Type: Reports: None Hx Tobacco Use: No Smoking Status (MU): Never Smoked Tobacco Have You Smoked in the Last Year: No Review of Systems Constitutional: Negative Eyes: Negative ENT: Negative Positive: Palpitations, Chest Pain Respiratory: Negative Positive: Abdominal Pain, Diarrhea, Nausea Genitourinary: Negative Musculoskeletal: Negative Skin: Negative Neurological: Negative Psychological: Normal All Other Systems Reviewed And Are Negative: Yes Physical Exam - Summary Physical Exam Summary: GENERAL: NAD. WDWN. No pain distress. SKIN: No rashes, sores, or open wounds. HEENT: Head: AT/NC Eyes: PERRLA. EOM intact. Conjunctiva clear without inflammation or discharge. Ears: Hearing grossly normal. TMs intact, no bulging, erythema, or edema. Nose: Nasal mucosa pink and moist. NTTP maxillary and frontal sinus. Throat: Posterior oropharynx without exudates, erythema, or tonsillar enlargement. Uvula midline. NECK: Supple. Nontender. No lymphadenopathy. CHEST: CTAB. No r/r/w. No accessory muscle use. Breathing comfortably and in no distress. CV: RRR. Without m/r/g. Pulses intact. Brisk cap refill. No JVD or carotid bruit. ABDOMEN: Soft. NTTP. No distention or guarding. No CVA tenderness. Bowel sounds present MSK: FROM and 5/5 strength throughout. No edema. NEURO: Alert. PSYCH: Age appropriate behavior. Triage Information Reviewed: Yes Vital Signs On Initial Exam: Vital Signs: Temp Pulse Resp BP Pulse Ox 99.5 F 107 18 147/97 98 12/05/18 17:41 12/05/18 17:44 12/05/18 17:41 12/05/18 17:43 12/05/18 17:44 Vital Signs Reviewed: Yes Diagnostics - Laboratory Lab Results: Laboratory Tests 12/05/18 12/05/18 12/05/18 17:54 17:54 17:54 WBC 12.7 H RBC 4.71 Hgb 14.1 Hct 41 MCV 87 MCH 30 MCHC 34 RDW 13 Plt Count 331 MPV 8.2 Neut % (Auto) 75.4 Lymph % (Auto) 16.8 [place] % (Auto) 6.7 Eos % (Auto) 0.6 Baso % (Auto) 0.5 Absolute Neuts (auto) 9.6 H Absolute Lymphs (auto) 2.1 Absolute Monos (auto) 0.8 Absolute Eos (auto) 0.1 Absolute Basos (auto) 0.1 Absolute Nucleated RBC 0.0 Nucleated RBC % 0.0 D-Dimer, Quantitative < 200 Sodium 140 Potassium 3.5 Chloride 109 Carbon Dioxide 23 Anion Gap 8 BUN 11 Creatinine 0.87 Est GFR ( Amer) 90.7 Est GFR (Non-Af Amer) 75.0 BUN/Creatinine Ratio 12.6 Glucose 97 Lactic Acid Calcium 9.4 Magnesium 2.2 Total Bilirubin 0.50 AST 16 ALT 18 Alkaline Phosphatase 34 Troponin I 0.00 Total Protein 7.4 Albumin 4.5 Globulin 2.9 Albumin/Globulin Ratio 1.6 Beta HCG, Quant < 0.60 12/05/18 12/05/18 17:54 20:45 WBC RBC Hgb Hct MCV MCH MCHC RDW Plt Count MPV Neut % (Auto) Lymph % (Auto) J[place] % (Auto) Eos % (Auto) Baso % (Auto) Absolute Neuts (auto) Absolute Lymphs (auto) Absolute Monos (auto) Absolute Eos (auto) Absolute Basos (auto) Absolute Nucleated RBC Nucleated RBC % D-Dimer, Quantitative Sodium Potassium Chloride Carbon Dioxide Anion Gap BUN Creatinine Est GFR ( Amer) Est GFR (Non-Af Amer) BUN/Creatinine Ratio Glucose Lactic Acid 1.0 Calcium Magnesium Total Bilirubin AST ALT Alkaline Phosphatase Troponin I 0.00 Total Protein Albumin Globulin Albumin/Globulin Ratio Beta HCG, Quant Result Diagrams: 12/05/18 17:54 12/05/18 17:54 Lab Statement: Any lab studies that have been ordered have been reviewed, and results considered in the medical decision making process. - CT CTA CT Interpretation Completed By: Radiologist Summary of CT Findings: IMPRESSION: 1. No pulmonary embolus. No dissection or aneurysm in the chest. 2. No consolidation, effusion or edema. abd/pelv CT Interpretation Completed By: Radiologist Summary of CT Findings: IMPRESSION: 1. No dissection or aneurysm. No significant atherosclerosis. 2. Incomplete distension versus underlying inflammation/infection, or other infiltrative pathology, with possible wall thickening without defined mass of the stomach. 3. No other acute disease seen. As above. . - EKG 1 EKG Comparison: Other Summary of EKG Findings: NSR 98bpm. No STEMI as read by Dr. Ngo. Re-Evaluation - Re-Evaluation First Eval Re-Evaluation Time: 21:06 Change: Improved Comment: Feeling much better. No more chest pains. No nausea or vomiting. Feels well Second Eval Re-Evaluation Time: 21:54 Change: Improved Comment: Asymptomatic currently. Discussed lab and imaging results Chest Pain Course/Dx - Course Course Of Treatment: CT and labs WNL. HEART score 1 for family hx. Suspect gastritis - likely from the meal she had last night. In the ED course pt was given maalox, viscous lidocaine, pepcid, reglan, and benadryl and had complete resolution of her symptoms. Regarding her transient tachycardia - she is currently undergoing outpatient evaluation with cardiology and endo for this, I encouraged her to keep her follow up appointments with her specialists for further evaluation of this. Advised to return to the ED if she develops chest pain, SOB, abdominal pain, vomiting, new or worsening symptoms. Pt voiced understanding and agrees with the plan. - Chest Pain Differential Diagnosis/HQI/PQRI: ACS, GI Disease, Pulmonary Embolism - Diagnoses Provider Diagnoses: Gastritis Discharge ED - Sign-Out/Discharge Documenting (check all that apply): Patient Departure Patient Received Moderate/Deep Sedation with Procedure: No - Discharge Plan Condition: Stable Disposition: HOME Prescriptions: Famotidine TAB* [Pepcid 20 MG TAB*] 20 mg PO DAILY #14 tab Patient Education Materials: Gastritis (ED) Referrals: Kain Delgado [Primary Care Provider] - Additional Instructions: If you develop a fever, shortness of breath, chest pain, new or worsening symptoms - please call your PCP or go to the ED immediately. Please continue your at home medications as prescribed. I recommend that you practice a bland diet for the next day or two consisting of bananas, rice, applesauce, toasts, and soups. Advance your diet as tolerated. Please continue to follow up with your specialists regarding your ongoing fluctuating heart rate - Billing Disposition and Condition Condition: STABLE Disposition: Home
[2018-12-05 18:03] LABS: ABS Basophils 0.1 10^3/ul (0-0.2); ABS Eosinophils 0.1 10^3/ul (0-0.6); ABS Lymphocytes 2.1 10^3/ul (1.0-4.8); ABS Monocytes 0.8 10^3/ul (0-0.8); ABS Neutrophils 9.6 10^3/ul (1.5-7.7); Eosinophil % 0.6 %; Hematocrit 41 % (35-47); Hemoglobin 14.1 g/dL (12.0-16.0); Lymphocyte % 16.8 %; Mean Corpuscular HGB Conc 34 g/dL (31-36); Mean Corpuscular Hemoglobin 30 pg (27-31); Mean Corpuscular Volume 87 fL (80-97); Mean Platelet Volume 8.2 fL (7.4-10.4); Platelet Count 331 10^3/uL (150-450); Red Blood Count 4.71 10^6 /uL (3.70-4.87); Red Cell Distribution Width 13 % (10-15); White Blood Count 12.7 10^3/uL (3.5-10.8)
[2018-12-05 18:19] LABS: ALT 18 U/L (7-52); AST 16 U/L (13-39); Albumin 4.5 g/dL (3.2-5.2); Albumin/Globulin Ratio 1.6 (1-3); Alkaline Phosphatase 34 U/L (34-104); Anion Gap 8 mmol/L (2-11); BUN/Creatinine Ratio 12.6 (8-20); Blood Urea Nitrogen 11 mg/dL (6-24); CO2 Carbon Dioxide 23 mmol/L (22-32); Calcium 9.4 mg/dL (8.6-10.3); Chloride 109 mmol/L (101-111); EGFR African American 90.7 (>60); Globulin 2.9 g/dL (2-4); Glucose 97 mg/dL (70-100); Magnesium 2.2 mg/dL (1.9-2.7); Potassium 3.5 mmol/L (3.5-5.0); Sodium 140 mmol/L (135-145); Total Protein 7.4 g/dL (6.4-8.9)
[2018-12-05 18:26] LABS: HCG Pregnancy < 0.60 mIU/mL
[2018-12-05] MEDS ORDERED: diPHENhydraMINE IV* 50 MG/ML 1 ml VIAL (BENADRYL) IV ONE (18:55)
[2018-12-05] MEDS ORDERED: Lidocaine 2% VISCOUS* 15 ML UDC PO ONE (18:55)
[2018-12-05] MEDS ORDERED: Metoclopramide IV* 5 MG/ML 2 ML VIAL IV ONE (18:55)
[2018-12-05] MEDS ORDERED: Famotidine IV* 10 MG/ML 2 ML (20 mg) IV SLOW PU ONE (18:55)
[2018-12-05] MEDS ORDERED: Al Hydrox/Mg Hydrox/Simet LIQ* 30 ML UDC PO ONE (18:55)
[2018-12-05] MEDS ORDERED: NS 0.9% 1000 ML** 1,000 ML IV ONE ×2 (18:55→21:06)
[2018-12-05] MEDS ORDERED: Iohexol 350* (CONTRAST) 500 ML MDV IV ONE (19:42)
--- OUTSIDE RECORDS SUMMARY | 2018-12-05 20:11 | XMS REPORT | Continuity of Care Document ---
:1985 External Reference #:[id number] Author Name Arias Burnett MD Address [address] [place] [address] [address] [place] [address] Care Team Providers Name Role Phone Kain Delgado - Family Medicine Care Team Information Warp Picker Problems Description No Active Problems Social History Type Date Description Comments Sex Unknown Tobacco Use Start: Unknown Never Smoked Cigarettes Smoking Status Reviewed: 09/18/18 Never Smoked Cigarettes ETOH Use Drinks Alcoholic Beverages Occasionally Recreational Drug Use Denies Drug Use Tobacco Use Start: Unknown Patient has never smoked Exercise Type/Frequency Does not exercise Allergies, Adverse Reactions, Alerts Active Allergies Reaction Severity Comments Date Penicillins unsure her mother told 07/12/2010 her Bactrim hives 07/12/2010 Cephalexin Rash Swelling Breathing 11/19/2018 problems Bees 11/19/2018 Medications Active Medications SIG Qnty Indications Ordering Date Provider Probiotic 1 tab oral daily Unknown Capsules Levothyroxine Sodium 1 by mouth every Unknown day 50mcg Tablets Metoprolol Succinate 1 by mouth every Unknown ER day 25mg Tablets ER 24HR Enskyce 1 tablet daily as 84tabs Betty 0.15-30mg-mcg directed DEE Collado Tablets Loratadine 1 tab daily as Unknown 10mg Capsules needed Multivitamin Unknown Vitamin C 1 by mouth every Unknown 500mg Capsules day Immunizations CPT Code Status Date Vaccine Lot # [id number] Given 11/29/2010 Rho(D)Immune Globin Full Dose,For Intramusculare Use [id number] Given 07/25/2010 Rho(D)Immune Globin Mini Dose,For Intramusculare Use Vital Signs Date Vital Result Comment 11/19/2018 1:07pm Weight 135.38 lb Weight 61.406 kg BMI (Body Mass Index) 25.4 kg/m2 BP Systolic 138 mmHg BP Diastolic 76 mmHg Heart Rate 82 /min Respiratory Rate 18 /min Height 61.25 inches 5'1.25" Height in cm's 155.6 cm O2 % BldC Oximetry 99 % 09/18/2018 3:06pm Weight 141.00 lb Weight 63.958 kg BMI (Body Mass Index) 26.4 kg/m2 BP Systolic 118 mmHg BP Diastolic 62 mmHg Height 61.25 inches 5'1.25" Height in cm's 155.6 cm Last Menstrual Period [id number] abnormal 1 Parity 1 Results Test Date Facility Test Result H/L Range Note Laboratory test 09/18/2018 [facility] Culture Urine CULTURE 1 finding [phone] OBSERVAT <SEE NOTE> Urinalysis 09/18/2018 [facility] Color YELLOW Routine [phone] Appearance CLEAR Clear Specific [place] 1.005 1.000-1.030 pH 7.0 5.0-8.0 Leukocytes NEGATIVE Negative Nitrate NEGATIVE Negative Protein NEGATIVE mg/dL Negative Glucose NORMAL mg/dL Normal Ketone NEGATIVE mg/dL Negative Urobilinogen NORMAL mg/dL Normal Bilirubin NEGATIVE mg/dL Negative Hemoglobin NEGATIVE Negative Vaginal Panel 09/18/2018 [facility] Bacterial NEGATIVE Negative PCR [phone] Vaginosis Nabila Species NEGATIVE Negative 2 Nabila Kruse[place] NEGATIVE Negative Nabila [place] NEGATIVE Negative Trichomonas NEGATIVE Negative 3 Comprehensive Panel 06/08/2018 [facility] Sodium 138 mmol/L 136 -145 [phone] Potassium 4.4 mmol/L 3.5-5.2 Chloride 107 mmol/L 100-108 Co2 22 mmol/L 21-32 Glucose 90 mg/dL 70-100 BUN 15 mg/dL 7-21 Creatinine 0.7 mg/dL 0.6-1.3 4 Calcium 9.3 mg/dL 8.5-10.8 GFR >60 T Bili 0.3 mg/dL 0.0-1.2 T Protein 6.9 gm/dL 6.4-8.2 Albumin 4.4 gm/dL 3.4-4.8 Alk Phos 38 U/L Low 40-150 Alt (SGPT) 27 U/L 0-55 Ast (Sgot) 20 U/L 5-37 Laboratory test 06/08/2018 [facility] Osmolality Canceled By 280-300 finding [phone] Serum Lab mOsm/kg Metanephrines 06/08/2018 [facility] Normetanephrin 132 pg/mL 0- 145 5 Plasma [phone] e, Pl Metanephrine, Pl 34 pg/mL 0-62 6 Laboratory test finding 06/08/2018 [facility] TSH 0.58 uIU/mL 0.34-4.82 [phone] T4 - Free 1.07 ng/dL 0.77-1.60 FT3 3.0 pg/mL 2.1-4.0 Osmolality Urine 124 mOsm/kg Low 300-1,000 7 1 CULTURE OBSERVATIONS CULTURE OBSERVATIONS Growth not obtained 2 Nabila species includes Nabila albicans and/or Nabila tropicalis and/or Nabila parapsilosis and/or Nabila dubliniensis. 3 Methodology: Polymerase Chain Reaction (PCR) 4 Normal Kidney Function or Mild Disease - GFR >OR= 60 Chronic Kidney Disease - GFR 15-59 Renal Failure - GFR < 15 GFR not calculated on patients under 18 years of age. 5 This test was developed and its performance characteristics determined by [employer]. It has not been cleared or approved by the Food and Drug Administration. 6 This test was developed and its performance characteristics determined by [employer]. It has not been cleared or approved by the Food and Drug Administration. . Concentrations of Normetanephrine between 146 and 487 pg/mL, and Metanephrine between 63 and 255 pg/mL are considered indeterminate. Follow-up biochemical testing is recommended when patient levels fall within this indeterminate range. These tests include repeat testing of plasma/urinary fractionated metanephrines and plasma catecholamines. 7 CORRECTED RESULT - Previously reported as: 262 On 06/08/2018 11:05 By [email or web address] Procedures Description No Information Available Medical Devices Description No Information Available Encounters Type Date Location Provider Dx Diagnosis Office Visit 11/19/2018 [facility] Arias Burnett MD G47.30 Sleep apnea, 1:00p & Sleep Medicine unspecified E66.09 Other obesity due to excess calories R53.83 Other fatigue R51 Headache Office Visit 09/18/2018 2:30p [facility] Teresita Guerrero Z01.419 [facility] for [employer] [facility] Gyne[facility] DEE Collado exam (general) Ups (routine) w/o abn findings N76.0 Acute vaginitis R35.0 Frequency of micturition Z30.09 Encounter for oth general coun and advice on contraception Office Visit 07/28/2018 1:30p [facility] Arias Burnett MD R05 Cough Medicine G47.30 Sleep apnea, unspecified R00.2 Palpitations Office Visit 06/08/2018 8:15a [facility] Bharat Banegas R00.2 Palpitations Diabetes & [facility] R35.8 Other polyuria Assessments Date Code Description Provider 11/19/2018 G47.30 Sleep apnea, unspecified Arias Burnett MD 11/19/2018 E66.09 Other obesity due to excess calories Arias Burnett MD 11/19/2018 R53.83 Other fatigue Arias Burnett MD 11/19/2018 R51 Headache Arias Burnett MD 09/18/2018 Z01.419 Encounter for gynecological examination Teresita Collado CNM (general) (routine) 09/18/2018 N76.0 Acute vaginitis Teresita Collado CNM 09/18/2018 R35.0 Frequency of micturition Teresita Collado CNM 09/18/2018 Z30.09 Encounter for other general counseling and Teresita Collado CNM advice on contrac 07/28/2018 R05 Cough Arias Burnett MD 07/28/2018 G47.30 Sleep apnea, unspecified Arias Burnett MD 07/28/2018 R00.2 Palpitations Arias Burnett MD 06/08/2018 R00.2 Palpitations Bharat Pelaez MD 06/08/2018 R35.8 Other polyuria Bharat Pelaez MD Plan of Treatment No Information Available Functional Status Description No Information Available Mental Status Description No Information Available Referrals Description No Information Available
--- OUTSIDE RECORDS SUMMARY | 2018-12-05 20:11 | XMS REPORT | Continuity of Care Document ---
:1985 External Reference #:[id number] Author Name Jethro Richter MD Address [address] [place] [id number] Care Team Providers Name Role Phone Kain Delgado Care Team Information Glazing Department Supervisor [phone] Bharat Pelaez MD - Endocrinology, Care Team Information Glazing Department Supervisor Diabetes & Metabolism Problems Active Problems Provider Date Family history of ischemic heart disease and Jethro Richter MD Onset: 2018 other diseases of the circulatory system Mitral valve disorder Jethro Richter MD Onset: 05/22/2018 Excessive thirst Jethro Richetr MD Onset: 05/22/2018 Polyuria Jethro Richter MD Onset: 05/22/2018 Disturbance in sleep behavior Jethro Richter MD Onset: 05/22/2018 Hypothyroidism Jethro Richter MD Onset: 05/22/2018 Essential hypertension Jethro Richter MD Onset: 05/22/2018 Palpitations Jethro Richter MD Onset: 05/22/2018 Social History Type Date Description Comments Sex Unknown Tobacco Use Start: Unknown Never Smoked Cigarettes Smoking Status Reviewed: 11/05/18 Never Smoked Cigarettes ETOH Use Denies alcohol use Tobacco Use Start: Unknown Patient has never smoked Recreational Drug Use Denies Drug Use Allergies, Adverse Reactions, Alerts Active Allergies Reaction Severity Comments Date Penicillin G Sodium 04/10/2018 Bactrim 04/10/2018 Penicillin 04/10/2018 Cephalexin hives 11/05/2018 Medications Active Medications SIG Qnty Indications Ordering Date Provider Metoprolol Succinate 1 & 1/2 tablet 180tabs Jethro Richter 08/14/2018 ER daily. May take MD 25mg Tablets ER 24HR extra 1/2 tablet if more palpitations. Levothyroxine Sodium 1 by mouth every Unknown day 50mcg Tablets Enskyce Unknown 0.15-30mg-mcg Tablets Multivitamin Adult Daily Unknown Tablets Vitamin C every day Unknown 500mg Capsules Loratadine 1 by mouth every Unknown 10mg day as needed Capsules Benadryl Allergy as Needed Unknown 25mg Capsules Albuterol Sulfate use 1 vial via Unknown nebulizer two (2.5mg/3ML) 0.083% times a day, as Nebulizer needed for sob History Medications Metoprolol Succinate 1 tablet daily and 120tabs Felizen Merlyn Richter 2018 - ER take 1/2 tablet if MD 08/14/2018 25mg Tablets ER persistent 24HR palpitation Immunizations CPT Code Status Date Vaccine Lot # [id number] Refused 08/14/2018 Flu Vaccine Vital Signs Date Vital Result Comment 11/05/2018 11:18am BP Systolic 120 mmHg BP Diastolic 86 mmHg Heart Rate 86 /min Respiratory Rate 15 /min Height 61.75 inches 5'1.75" Weight 136.00 lb O2 % BldC Oximetry 100 % BMI (Body Mass Index) 25.1 kg/m2 BSA (Body Surface Area) 1.62 m2 08/14/2018 1:09pm BP Systolic 138 mmHg BP Diastolic 74 mmHg BP Systolic Recheck 120 mmHg BP Diastolic Recheck 80 mmHg Heart Rate 74 /min Respiratory Rate 16 /min Height 61.75 inches 5'1.75" Weight 135.00 lb O2 % BldC Oximetry 99 % BMI (Body Mass Index) 24.9 kg/m2 BSA (Body Surface Area) 1.61 m2 Results Test Date Facility Test Result H/L Range Note .Regular - CBC,BMP,Mag 11/05/2018 [facility] Magnesium 2.1 mg/dL 1.7-2.6 CBC W/Auto Differential 11/05/2018 [facility] WBC 7.3 K/uL 4.8-10.8 RBC 4.80 M/uL 4.20-5.40 Hemoglobin 14.1 gm/dL 12.0-16.0 Hematocrit 42.2 % 36.0-48.0 MCV 87.8 fL 80.0-100.0 MCHC 33.5 % 30.0-36.5 MCH 29.4 pg 27.0-34.0 RDW 11.0 % 11.0-15.0 Platelet 300 K/uL 130-450 MPV 8.0 fL 6.0-12.0 NE% 61 % 37-80 Ly% 29 % 10-50 Mo% 8 % 0-12 Eo% 1 % <=8 Ba% 1 % <=3 NE# 4.4 K/uL 1.8-8.6 Lymph# 2.1 K/uL 0.5-5.0 Schuyler# 0.6 K/uL 0.0-1.3 Eos# 0.1 K/uL 0.0-0.9 Baso# 0.1 K/ul 0.0-0.3 Basic Metabolic Panel 11/05/2018 [facility] Sodium 136 mmol/L 136-145 Potassium 4.1 mmol/L 3.5-5.2 Chloride 103 mmol/L 100-108 Co2 23 mmol/L 21-32 Glucose 88 mg/dL 70-100 BUN 8 mg/dL 7-21 Creatinine 0.8 mg/dL 0.6-1.3 1 Calcium 9.5 mg/dL 8.5-10.8 GFR >60 Laboratory test 11/05/2018 [facility] B-Type Natriuretic 23 pg/mL 0-100 finding Peptid TSH & T4 Free (Amh) 11/05/2018 [facility] TSH 1.05 uIU/mL 0.34-4.82 T4 - Free 1.09 ng/dL 0.77-1.60 Laboratory test finding 11/05/2018 [facility] CK 101 U/L 21-215 Troponin I 0.00 ng/mL 0.00-0.04 2 Laboratory test finding 06/15/2018 [facility] CK 216 U/L High 21-215 Troponin I 0.00 ng/mL 0.00-0.04 3 B-Type Natriuretic Peptid 118 pg/mL High 0-100 D-Dimer 06/15/2018 [facility] D-Dimer 0.5 mg/L <=0.5 D-Dim Interpretation < or= 0.5 <SEE NOTE> 4 1 Normal Kidney Function or Mild Disease - GFR >OR= 60 Chronic Kidney Disease - GFR 15-59 Renal Failure - GFR < 15 GFR not calculated on patients under 18 years of age. 2 TROPONIN INTERPRETATION 0.00 - 0.04 ng/ml Normal 0.05 - 0.29 ng/ml Ni Zone, Uncertain for AMI Greater than 0.30 ng/ml Suggestive of AMI 3 TROPONIN INTERPRETATION 0.00 - 0.04 ng/ml Normal 0.05 - 0.29 ng/ml Ni Zone, Uncertain for AMI Greater than 0.30 ng/ml Suggestive of AMI 4 < or= 0.5 Negative for Thromboembolism > 0.5 Increased Probability of Thromboembolism D-Dimer results are elevated in many common conditions including D.I.C., pregnan cy, coronary artery disease, malignancy, infections, acute inflammation, liver disease, vasculitis, and in post-operative patients. D-Dimer results should be correlated with clinical symptomology. Procedures Date Code Description Status 11/05/2018 72873 Electrocardiogram Complete Completed 06/15/2018 47973 Electrocardiogram Complete Completed Medical Devices Description No Information Available Encounters Type Date Location Provider Dx Diagnosis Office Visit 11/05/2018 11:30a Nadeen Richter MD R60.0 Localized edema R07.9 Chest pain, unspecified I10 Essential (primary) hypertension E03.9 Hypothyroidism, unspecified G47.9 Sleep disorder, unspecified R00.0 Tachycardia, unspecified R63.1 Polydipsia Z82.49 Family hx of ischem heart dis and oth dis of the circ sys I34.1 Nonrheumatic mitral (valve) prolapse I34.0 Nonrheumatic mitral (valve) insufficiency Office Visit 08/14/2018 1:00p Nadeen Richter MD R00.2 Palpitations I10 Essential (primary) hypertension E03.9 Hypothyroidism, unspecified G47.9 Sleep disorder, unspecified R00.0 Tachycardia, unspecified R63.1 Polydipsia R35.8 Other polyuria Z82.49 Family hx of ischem heart dis and oth dis of the circ sys I34.1 Nonrheumatic mitral (valve) prolapse I34.0 Nonrheumatic mitral (valve) insufficiency Office Visit 06/15/2018 10:00a Nadeen Richter MD R07.9 Chest pain, unspecified R07.9 Chest pain, unspecified R00.2 Palpitations R00.2 Palpitations I10 Essential (primary) hypertension E03.9 Hypothyroidism, unspecified E03.9 Hypothyroidism, unspecified G47.9 Sleep disorder, unspecified R35.8 Other polyuria R00.0 Tachycardia, unspecified R63.1 Polydipsia Z82.49 Family hx of ischem heart dis and oth dis of the circ sys Assessments Date Code Description Provider 11/05/2018 R60.0 Localized edema Jethro Richter MD 11/05/2018 R07.9 Chest pain, unspecified Jethro Richter MD 11/05/2018 I10 Essential (primary) hypertension eJthro Richter MD 11/05/2018 E03.9 Hypothyroidism, unspecified Jethro Richter MD 11/05/2018 G47.9 Sleep disorder, unspecified Jethro Richter MD 11/05/2018 R00.0 Tachycardia, unspecified Jethro Richter MD 11/05/2018 R63.1 Polydipsia Jethro Richter MD 11/05/2018 Z82.49 Family history of ischemic heart disease and Jethro Richter MD other diseases 11/05/2018 I34.1 Nonrheumatic mitral (valve) prolapse Jethro Richter MD 11/05/2018 I34.0 Nonrheumatic mitral (valve) insufficiency Jethro Richter MD 08/14/2018 R00.2 Palpitations Jethro Richter MD 08/14/2018 I10 Essential (primary) hypertension Jethro Richter MD 08/14/2018 E03.9 Hypothyroidism, unspecified Jethro Richter MD 08/14/2018 G47.9 Sleep disorder, unspecified Jethro Richter MD 08/14/2018 R00.0 Tachycardia, unspecified Jethro Richter MD 08/14/2018 R63.1 Polydipsia Jethro Richter MD 08/14/2018 R35.8 Other polyuria Jethro Richter MD 08/14/2018 Z82.49 Family history of ischemic heart disease and Jethro Richter MD other diseases 08/14/2018 I34.1 Nonrheumatic mitral (valve) prolapse Jethro Richter MD 08/14/2018 I34.0 Nonrheumatic mitral (valve) insufficiency Jethro Richter MD 06/15/2018 R07.9 Chest pain, unspecified Jethro Richter MD 06/15/2018 R07.9 Chest pain, unspecified Jethro Richter MD 06/15/2018 R00.2 Palpitations Jethro Richter MD 06/15/2018 R00.2 Palpitations Jethro Richter MD 06/15/2018 I10 Essential (primary) hypertension Jethro Richter MD 06/15/2018 E03.9 Hypothyroidism, unspecified Jethro Richter MD 06/15/2018 E03.9 Hypothyroidism, unspecified Jethro Richter MD 06/15/2018 G47.9 Sleep disorder, unspecified Jethro Richter MD 06/15/2018 R35.8 Other polyuria Jethro Richter MD 06/15/2018 R00.0 Tachycardia, leylaified Jethro Richter MD 06/15/2018 R63.1 Polydipsia Jethro Richter MD 06/15/2018 Z82.49 Family history of ischemic heart disease and Jethro Richter MD other diseases Plan of Treatment Future Appointment(s):12/14/2018 11:00 am - Jethro Richter MD at [id number] - Jethro Richter MDR60.0 Localized yfioqD02.9 Chest pain, [id number] Essential (primary) ydrocvapxzqkM63.9 Hypothyroidism, hgrgrxosgdjQ83.9 Sleep disorder, tgyyiffngdrF13.0 Tachycardia, kdyjwbjcbyxI36.1 JkkdtpgmlsL70.49 Family hx of ischem heart dis and oth dis of the circ sysI34.1 Nonrheumatic mitral (valve) [id number] Nonrheumatic mitral (valve) insufficiencyRecommendations:1. I reviewed patient's clinical history and discussed in comprehensive details the findings on examination. 2. Overall, based on all pertinent clinical information, history, examination, and observation, patient not in acute decompensation. BP under control. Recurrence of palpitations. No SOB, BARNES, orthopnea, PND, edema, dizziness, or LOC. 3. Reviewed all prior cardiovascular work ups today's EKG, recent echocardiogram, carotid US, EKG stress testing, Holter, prior [facility] visit, blood works done by PCP. Findings and it's significance discussed with the patient. 4. Continue Metoprolol succinate ER 25 mg/tablet 1 tablet daily. May take 1/2 tablet if with persistent palpitations. 5. Her symptoms appear noncardiac in origin. Patient was advised to follow-up with her primary care physician for further evaluation of all her symptoms. She was also advised to avoid excessive fluid intake . Advised good fluid balance. 6. Advised follow-up with Dr. Pelaez regarding possible diabetes insipidus and its work-up including possible pheochromocytoma. 8. Management of hypertension in general with diet, reduced calories, low salt diet, moderate regular exercise, maintaining ideal body weight and current medical therapy. 9. Continue aggressive risk factor modification with keeping cholesterol, weight, blood pressure, and blood sugar at target level were discussed with the patient in detail. 10. At this time, patient was advised continuation of current medications. 11. If there is sudden change in condition, development of symptoms, patient was advised to seek prompt medical help. 12. Regular follow-up as scheduled in December or earlier if needed. Functional Status Description No Information Available Mental Status Description No Information Available Referrals Description No Information Available
[2018-12-05 22:18] VITALS: BP 135/90
== END 2018-12-05 22:17 | disposition home or self-care (01) ==
LOC: ED 17:35
DX: K29.70 Gastritis, unspecified, without bleeding (principal); E07.9 Disorder of thyroid, unspecified; I10 Essential (primary) hypertension; Z85.820 Personal history of malignant melanoma of skin; Z79.890 Hormone replacement therapy; Z79.899 Other long term (current) drug therapy; Z88.1 Allergy status to other antibiotic agents; Z88.0 Allergy status to penicillin; Z88.2 Allergy status to sulfonamides
CPT/HCPCS: 36415; 71045; 71275; 74177; 80053; 83605; 83735; 84484; 84702; 85025; 85379; 93005; 96361; 96374; 96375; 99284; A9270-GY; J1200; J2765; Q9967